=== PATIENT | female | born 1965 | race Hispanic/Latino ===

== ENCOUNTER 2020-08-25 14:39 | Emergency (ER) | payer SELFPAY ==
--- NOTE | ~2020-08-25 | US_ITS ---
EXAMINATION: US right upper quadrant DATE: 08/25/2020 16:09 INDICATION: Epigastric and right upper quadrant abdominal pain. Nausea and vomiting. TECHNIQUE: Multiple grayscale and Doppler ultrasound images of the abdomen were obtained. COMPARISON: None FINDINGS: The visualized portions of the head and body of the pancreas are normal. The liver is vera l without focal lesion. There is normal flow in main portal vein. There are gallstones in the gallbla dder, which is distended. Gallbladder wall thickening is noted. There was no sonographic Patel sign. The common duct is normal and measures 6 mm. IMPRESSION: 1. Acute cholecystitis. Reviewed, dictated and finalized at location A. IMPRESSION: 1. Acute cholecystitis.
[2020-08-25 14:51] VITALS: BP 162/86; PULSE 63; RESP 16; TEMP 36.6; O2SAT 99
--- NOTE | 2020-08-25 15:07 | ED.GENADULT ---
HPI - General Adult General Chief complaint: Abdominal Pain <Parker Parmar PA-C - Last Filed: 08/25/20 17:11> Stated complaint: abd pain <Parker Parmar PA-C - Last Filed: 08/25/20 17:11> Time Seen by Provider: 08/25/20 14:46 <Parker Parmar PA-C - Last Filed: 08/25/20 17:11> Source: patient and family <Parker Parmar PA-C - Last Filed: 08/25/20 17:11> Mode of arrival: ambulatory <Parker Parmar PA-C - Last Filed: 08/25/20 17:11> Limitations: no limitations and language barrier (Lumber Material Handler was utilized) <Parker Parmar PA-C - Last Filed: 08/25/20 17:11> History of Present Illness HPI narrative: Patient is a 55-year-old female who presents to emergency department for evaluation of abdominal pain that began after breakfast this morning around 10:00 as a severe aching pain in the epigastrium and right side of the back patient notes history of gallbladder disease in the past. Patient notes that she gets gallbladder attacks but today the pain became much worse and intensified causing an episode of emesis. Patient denies other pertinent past medical history has not taken anything for her symptoms presents in no distress but appears uncomfortable <Parker Parmar PA-C - Last Filed: 08/25/20 17:11> Related Data Allergies/adverse reactions: Allergies Allergy/AdvReac Type Severity Reaction Status Date / Time No Known Allergies Allergy Verified 08/25/20 14:59 <Parker Parmar PA-C - Last Filed: 08/25/20 17:11> Review of Systems Review of Systems: All systems reviewed & are unremarkable except as noted in HPI and below <Parker Parmar PA-C - Last Filed: 08/25/20 17:11> [facility] Surgical History Surgical History: Surgical History (Updated 08/25/20 @ 15:09 by Parker Parmar PA-C) Previous section <Parker Parmar PA-C - Last Filed: 08/25/20 17:11> Social History Social History: Social History (Updated 08/25/20 @ 15:09 by Parker Parmar PA-C) Smoking status: Never smoker Alcohol intake: never <Parker Parmar PA-C - Last Filed: 08/25/20 17:11> Exam Narrative: Exam Narrative: GENERAL: Well-appearing, obese, uncomfortable and in no acute distress. HEAD: Normocephalic, atraumatic. EYES: PERRLA and EOMI. ENT: Nares clear, no rhinorrhea or epistaxis. Mucous membranes moist. CHEST: Clear to auscultation. No respiratory distress. No wheezes rales or rhonchi HEART: Regular rate and rhythm. No murmur heard. Normal peripheral pulses. ABDOMEN: Soft, generalized tenderness worse in the upper quadrants with voluntary guarding, distended EXTREMITIES: Normal range of motion. No edema. SKIN: Warm, dry, no rash. NEURO: No focal deficits. Alert and oriented x3. PSYCH: Normal mood and affect. <SNEHA Marroquin Last Filed: 08/25/20 17:11> Course Course Emergency Course: Patient presented with symptoms consistent with gallbladder disease noting history of gallbladder disease was evaluated with imaging and blood work was medicated in the emergency department patient is aware of these findings her pain resolved with the medications provided. Patient aware of the recommendations and discussion with general surgeon. An manager line was utilized to communicate with the patient. She is afebrile nontoxic-appearing no distress ABCs and vital signs intact and stable. Patient agrees with the treatment plan <SNEHA Marroquin Last Filed: 08/25/20 17:11> Consultations Consultation #1: Discussed case with Dr. Delarosa the general surgeon who would like the patient to be sent home with low-fat diet and clinic follow-up <Parker Parmar PA-C - Last Filed: 08/25/20 17:11> Date: 08/25/20 <NSEHA Marroquin Last Filed: 08/25/20 17:11> Time: 17:09 <SNEHA Marroquin Last Filed: 08/25/20 17:11> Vital Signs Vital signs: Vital Signs Temperature 97.8 F 08/25/20 14:51 Pulse Rate 63 07/31
[2020-08-25] MEDS: SODIUM CHLORIDE 0.9% IV 1,000 ML 999 ML IV CONT (15:12)
[2020-08-25] MEDS: MORPHINE SULFATE (*CRX) 4 MG/ML INJ IV PUSH (15:15)
[2020-08-25] MEDS: FAMOTIDINE 20 MG/2 ML VIAL IV PUSH (15:15)
[2020-08-25] MEDS: ONDANSETRON INJ 4 MG/2 ML VIAL IV PUSH (15:15)
[2020-08-25 15:19] LABS: Basophils Absolute Auto 0.1 K/mm3 (0.0-0.1); Basophils Percent Auto 0.6 % (0.2-1.2); Eosinophils Absolute Auto 0.3 K/mm3 (0-0.3); Eosinophils Percent Auto 3.7 % (0-4.4); Hematocrit 41.3 % (37.0-47.0); Hemoglobin 13.4 g/dL (12.0-15.0); Immature Granulocyte Absolute 0.02 K/mm3 (0.00-0.031); Immature Granulocyte Percent A 0.3 % (0-0.5); Lymphocytes Absolute Auto 2.25 K/mm3 (0.9-3.2); Lymphocytes Percent Auto 28.6 % (18.3-44.2); Mean Corpuscular HGB Conc 32.4 g/dl (32-36); Mean Corpuscular Hemoglobin 29.8 pg (26-34); Mean Corpuscular Volume 91.8 fl (80-100); Mean Platelet Volume 9.6 fl (7.4-10.4); Monocytes Absolute Auto 0.6 K/mm3 (0.1-0.6); Monocytes Percent Auto 7.6 % (2.6-8.5); Neutrophils Absolute Auto 4.7 K/mm3 (1.3-6.7); Neutrophils Percent Auto 59.2 % (45.5-73.1); Platelet Count Result 227 k/mm3 (150-375); Red Cell Distribution Width 12.9 % (11.5-14.5); White Blood Count 7.9 K/mm3 (4.5-10.0)
[2020-08-25] MEDS: HYOSCYAMINE SULFATE 0.125 MG TABLET PO (15:23)
[2020-08-25 15:31] LABS: Alanine Aminotransferase 17 U/L (4-35); Albumin Level 3.9 g/dL (3.5-5.1); Alkaline Phosphatase 103 U/L (38-126); Anion Gap 10 mmol/L (8-16); Aspartate Amino Transferase 25 U/L (14-36); Bilirubin,Total 0.2 mg/dL (0.2-1.3); Blood Urea Nitrogen 15 mg/dL (7-17); Calcium 8.3 mg/dL (8.4-10.2); Carbon Dioxide 26 mmol/L (22-30); Chloride 106 mmol/L (98-107); Estimated CRCL calculation 87 ml/min; Estimated Glomerular Filt Rate > 60; Glucose 114 mg/dL (65-105); Lipase 126 U/L (23-300); Potassium 3.5 mmol/L (3.4-5.0); Sodium 142 mmol/L (137-145)
[2020-08-25 16:41] LABS: Add Urine Microscopic? YES; Appearance Urine Cloudy (Clear); Bacteria Urine Trace /hpf; Bilirubin Urine Negative (Negative); Blood Urine Negative (Negative); Color Urine Yellow (Yellow); Glucose Urine UA Negative (Negative); Ketones Urine Negative (Negative); Leukocyte Esterase Ur Trace LEU/UL (Negative); Mucus Urine Few /lpf; Nitrate Urine Negative (Negative); Protein Urine 1+ mg/dL (Negative); Specific Grav Ur 1.025 (1.001-1.035); Squamous Epithelial Cell Urine Many /hpf (Few)
[2020-08-25 16:42] VITALS: PULSE 59
[2020-08-25 16:45] VITALS: PULSE 58; RESP 14; O2SAT 98
[2020-08-25 17:09] VITALS: PULSE 59; RESP 18; O2SAT 97
[2020-08-25 17:28] VITALS: BP 136/78; PULSE 57; RESP 11; O2SAT 97
[2020-08-25 17:30] VITALS: BP 136/78; PULSE 65; RESP 16; O2SAT 100
== END 2020-08-25 17:30 | disposition home or self-care (01) ==
PROVIDERS: Emergency Medicine Emergency Medical Services; Emergency Provider General Practice
DX: K81.0 Acute cholecystitis (principal)
CPT/HCPCS: 36415; 76705; 80053; 81001; 81025; 83690; 85025; 96365; 96375; 99284; A9270; J0131; J2270; J2405; J7030

== ENCOUNTER → 2020-09-10 00:43 | Outpatient (CLI) | payer MEDICAID, SELFPAY ==
[2020-09-10 17:38] LABS: SARS-CoV-2 RNA PCR Negative
== END ==
PROVIDERS: Visit Provider Surgery
DX: Z01.812 Encounter for preprocedural laboratory examination (principal); Z20.822 Contact with and (suspected) exposure to COVID-19
CPT/HCPCS: C9803; U0003; U0005

== ENCOUNTER 2020-09-10 13:47 | Outpatient (CLI) | payer MEDICAID, SELFPAY ==
--- NOTE | 2020-09-10 15:25 | ECG_ITS ---
Measurements Intervals Hensel Rate: 62 P: 42 DC: 136 QRS: 21 QRSD: 102 T: 46 QT: 438 QTc: 446 Interpretive Statements SINUS RHYTHM INCOMPLETE RIGHT BUNDLE BRANCH BLOCK BASELINE ARTIFACT- I, II, III, AVR, AVL, AVF BORDERLINE ECG Electronically Signed On 09-10-2020 16:31:26 CDT by Hugo Chen D.O.
[2020-09-10 15:55] LABS: Alanine Aminotransferase 25 U/L (4-35); Albumin Level 3.9 g/dL (3.5-5.1); Alkaline Phosphatase 105 U/L (38-126); Amylase 68 U/L (30-110); Aspartate Amino Transferase 27 U/L (14-36); Bilirubin,Total 0.4 mg/dL (0.2-1.3); Lipase 104 U/L (23-300)
== END 2020-09-10 13:48 | disposition home or self-care (01) ==
PROVIDERS: Visit Provider Surgery
DX: Z01.818 Encounter for other preprocedural examination (principal); K80.00 Calculus of gallbladder with acute cholecystitis without obstruction
CPT/HCPCS: 36415; 80076; 82150; 83690; 86850; 86870; 86880; 86900; 86901; 86902; 86971; 93005

== ENCOUNTER 2020-09-11 02:04 | Day surgery (SDC) | payer MEDICAID, SELFPAY ==
[2020-09-09 16:10] VITALS: BMI 46.6
[2020-09-11] VITALS (12 sets, daily range): BP systolic 125–160; BP diastolic 66–95; PULSE 58–70; RESP 14–20; TEMP 36.2; O2SAT 91–96
--- NOTE | 2020-09-11 06:54 | WPDHPUPDATE1 ---
History and Physical Update Update Date/Time: 09/11/20 06:54 History and Physical has been reviewed, including an updated exam of the patient. There are NO changes in the patient's condition. Risks, benefits, and alternatives have been discussed and questions answered. Patient agrees to proceed with procedure.
[2020-09-11] MEDS: ACETAMINOPHEN 500 MG TABLET 1000 MG PO (13:00)
[2020-09-11] MEDS: LACTATED RINGERS 1,000 ML 30 ML IV CONT ×2 (13:14→15:25)
[2020-09-11] MEDS: KETOROLAC 15 MG/ML VIAL (*BKC) IV PUSH (13:14)
--- NOTE | 2020-09-11 13:26 | P.PNAN_ITS ---
Anes - Initial Pre Proc Eval Procedure: Operation Date: 09/11/20 14:00 Proposed Procedures p Laparoscopic Cholecystectomy - Brando Delarosa MD Date/Time: 09/11/20 13:26 Surgeon: Brando Delarosa MD Pre Op Diagnosis: acute cholecystitis with stones Patient Data Age: 55 Gender: F Height: 1.52 m Weight: 107.7 kg Last Vital Signs Temp 36.2 C L 09/11/20 13:09 Pulse 63 09/11/20 13:09 BP 160/95 H 09/11/20 13:09 Pulse Ox 96 09/11/20 13:09 Allergies Allergy/AdvReac Type Severity Reaction Status Date / Time No Known Allergies Allergy Verified 09/11/20 13:09 Home Medications Medication Instructions Recorded Confirmed Type No Home Medications 09/09/20 09/09/20 History Patient hx anesthesia problems: none Family hx anesthesia problems: none [facility] Surgical History Surgical History Previous section Family History Family History Father Acute myocardial infarction Daughter Asthma Social History Social History Smoking status: Never smoker Alcohol intake: never Living arrangements: with family Spiritual care concerns: No Anes - Eval Final PreProcedure Day of Procedure 09/11/20 13:26 Patient weight: morbidly obese Heart: regular rate and rhythm Lungs: clear to auscultation and normal air movement Airway: Mallampati scale class II Neurological: alert and oriented Last oral intake: >/= 8 hours ASA classification: III Emergent: no Anesthetic plan: proceed Anesthesia type and monitoring: general ETT and standard monitoring Informed Consent: The patient's anesthetic plan and its attendant risks and benefits were discussed with the patient/family/POA. Questions were solicited and answers provided to the satisfaction of the patient/family/POA.
[2020-09-11] MEDS: ceFAZolin 2 GM/D5W 50 ML 2 GM/50 ML BAG IVPB (13:53)
[2020-09-11] MEDS: BUPIVACAINE/EPINEPHRINE 0.5% 30 ML VIAL INFILTRATE (14:02)
--- NOTE | 2020-09-11 16:04 | SUR.PHASEI ---
Simple mask removed at 1604.
[2020-09-11] MEDS: ONDANSETRON INJ 4 MG/2 ML VIAL IV PUSH (16:15)
[2020-09-11] MEDS: fentaNYL CITRATE INJ (*CRX) 100 MCG/2 ML VIAL 25 MCG IV PUSH (16:24)
--- NOTE | 2020-09-11 16:38 | W.PM.PROC2 ---
Procedure Note - Detailed Date of Procedure 09/11/20 Pre-op Diagnosis acute cholecystitis with stones Post-op Diagnosis other ( Acute and chronic cholecystitis, cholelithiasis) Procedure Performed laparoscopic cholecystectomy Surgeon Brando Delarosa MD Hha Poppy Tucker [facility] Anesthesia general and local ( 0.5% Marcaine with epinephrine) Indications patient is a 55-year-old woman with severe right upper quadrant postprandial abdominal pain. She was in the emergency room and imaging showed multiple gallstones and evidence of cholecystitis. She has continued to have right upper quadrant pain with nausea. She was seen in the office in is taken to surgery now for laparoscopic cholecystectomy. Findings Multiple gallstones were noted in the gallbladder. She had fatty liver. The gallbladder had evidence of acute but mostly, chronic cholecystitis. There was no biliary ductal dilatation. No other significant findings. Description of Procedure The patient was taken to surgery and induced into general anesthesia. The abdomen was prepped and draped. Trocars were placed in the usual fashion using 0.5% Marcaine with epinephrine and applied Medical optical trocars. A 5 mm camera was used. The gallbladder was decompressed with a laparoscopic aspirator. It was noted that there were multiple stones in the gallbladder. The gallbladder wall was thickened and there was some edema in the wall of gallbladder consistent with chronic and acute cholecystitis. The cholecystotomy was closed with a Vicryl endoloop. The gallbladder was then retracted anterosuperiorly. Adhesions to the gallbladder were taken down using cautery and some dissection. Eventually we placed traction on the infundibulum of the gallbladder and began dissection in the cholecystohepatic triangle. The cystic duct and cystic artery were dissected out very clearly. The dissection was pretty bloody as there was quite a bit of hypervascularity from the inflammation. Cautery was used for hemostasis. Eventually the cystic duct and cystic artery were dissected and the gallbladder was dissected off the liver at its lower 3rd. Critical view was achieved. We securely clipped and divided the cystic duct cystic artery. We then continued our dissection of the gallbladder. It was carefully dissected off the liver. There was evidence of edema and chronic inflammation in the wall of the gallbladder. Eventually the gallbladder was dissected completely free of the liver. Some additional cautery on the gallbladder fossa was required. We then placed an Endo-Catch device and placed the gallbladder within bag. The gallbladder was extricated through the epigastric trocar site. I had to enlarge the skin at the epigastric trocar site. I also had to dilate the fascial opening. Eventually the gallbladder was able to be extricated. We replaced the epigastric trocar and occluded the opening with towel clips so that re- insufflation could be provided. With re- insufflation, I explosive the gallbladder fossa. There was really no bleeding. I irrigated it with saline and suctioned the area repeatedly. No evidence of bile leak or bleeding was noted. We suctioned away the rest of the irrigant. We then evacuated CO2 and removed the trocar sleeves. The fascia at the epigastric trocar site was closed with a [id number] 0 Vicryl suture. The subcutaneous was closed with 3 0 Vicryl interrupted sutures. The skin was loosely approximated with interrupted 3 0 Vicryl subcuticular skin sutures. The other trocar sites were closed at the skin level with running 4 0 Monocryl skin suture. All the incisions were then dressed with Exofin surgical adhesive. We awakened the patient and transferred her to recovery. Sponge and needle counts were correct x2. No complications were noted. Estimated Blood Loss 40 Drains No Packing No Pathology yes ( Gallbladder) Complications None Condition stable Disposition PAC
--- NOTE | 2020-09-11 16:48 | SUR.PHASEI ---
RN used [employer]. Patient said she was ready to go next door and get up in a chair, get something to drink, and visit with Maykel.
[2020-09-11] MEDS: SCOPOLAMINE 1.5 MG PATCH TRANSDERM (17:41)
== END 2020-09-11 18:34 | disposition home or self-care (01) ==
PROVIDERS: Visit Provider Surgery
PROC: 0FT44ZZ Resection of Gallbladder, Percutaneous Endoscopic Approach (ICD-10-PCS; CPT 47562; principal; 2020-09-11 14:00)
DX: K80.10 Calculus of gallbladder with chronic cholecystitis without obstruction (principal); E66.01 Morbid (severe) obesity due to excess calories; Z68.42 Body mass index [BMI] 45.0-49.9, adult
CPT/HCPCS: 47562; 88304; A9270; C1713; J0690; J1100; J1170; J1885; J2250; J2405; J2704; J2710; J3010; J7120

== ENCOUNTER 2020-10-05 00:30 | Emergency (ER) | payer MEDICAID, SELFPAY ==
--- NOTE | ~2020-10-05 | CT_ITS ---
EXAMINATION: CT abdomen pelvis w con DATE: 10/05/2020 03:02 INDICATION: Abdominal pain TECHNIQUE: Computed tomography (CT) of the abdomen and pelvis was performed with 100 cc Omnipaque 350 intravenous contrast. The dose-length product was 1422.34 mGy-cm. Automated exposure control and ite rative reconstruction technique were employed. COMPARISON: No prior studies for comparison. FINDINGS: Heart size normal. No significant pleural or pericardial effusion. Fatty infiltration of th e liver. Status post cholecystectomy. There is grade 1 anterolisthesis at L4-5. There are small subce ntimeter hypodensities of the left kidney, likely cysts. The spleen, pancreas, adrenal glands and rig ht kidney are unremarkable. Nonobstructive bowel gas pattern. No free air or free fluid. No abnormal pelvic masses or fluid collections. No significant vascular abnormality. No lymphadenopathy. IMPRESSION: 1. No acute abdominal abnormality. Reviewed, dictated and finalized at location A.
[2020-10-05 00:43] VITALS: BP 169/87; PULSE 74; RESP 20; TEMP 36.5; O2SAT 95
--- NOTE | 2020-10-05 01:18 | ED.GENADULT ---
HPI - General Adult General Chief complaint: Unspecified Stated complaint: ABD PAIN Time Seen by Provider: 10/05/20 01:18 History of Present Illness HPI narrative: 55 yo female w/ h/o cholecystectomy presents to the ED for flank pain. Right flank pain since this afternoon. Radiates to the epigastrium. Started when she felt a pop while helping to move. Associated with nausea. She had a cholecystectomy 3 weeks ago. No symptoms, fever, CP, SOB. Related Data Allergies Allergy/AdvReac Type Severity Reaction Status Date / Time No Known Allergies Allergy Verified 09/23/20 10:38 Review of Systems Review of Systems: All systems reviewed & are unremarkable except as noted in HPI and below Constitutional: Constitutional: Denies fever(s) Cardiovascular: Cardiovascular: Denies chest pain Respiratory: Respiratory: Denies dyspnea Gastrointestinal: Gastrointestinal: Reports as per HPI Genitourinary: Genitourinary: Reports no additional female genitourinary complaints Musculoskeletal: Musculoskeletal: Reports back pain Neurologic: Reports system reviewed and no additional complaints, except as documented [facility] Surgical History Surgical History Hx laparoscopic cholecystectomy Previous section Family History Family History Father Acute myocardial infarction Daughter Asthma Social History Social History Alcohol intake: never Spiritual care concerns: No Exam Const: General: healthy appearing, no acute distress and alert Orientation/consciousness: patient oriented x3 HENMT: Head: normal to inspection Neck: Neck: normal visual inspection Resp: Effort & Inspection: normal respiratory effort Auscultation: clear to auscultation bilaterally, no rales, no rhonchi and no wheezes Cardio: Jugular venous distension: no JVD Rate: regular rate Rhythm: regular rhythm Heart sounds: no murmurs GI: Inspection: non-distended GI Palp: Yes Soft to palpation, Yes Tenderness to palpation present (GI) (epigastri/RUQ) and No Guarding due to palpation present (GI) Back/Spine/Pelvis: Back: no CVA tenderness Skin: General skin exam: normal color Neuro: General: patient oriented x3, gait normal, moves all extremities and no focal motor deficits Cognition (Neuro): normal cognition Speech: normal speech Extrem: General: no edema Psych: Appearance: well kempt Affect: normal affect Course Vital Signs Vital signs: Vital Signs Temperature 36.5 C 10/05/20 00:43 Pulse Rate 74 10/05/20 00:43 Respiratory Rate 20 10/05/20 00:43 Blood Pressure 169/87 H 10/05/20 00:43 Pulse Oximetry 95 10/05/20 00:43 Temperature 36.5 C 10/05/20 00:43 Pulse Rate 78 10/05/20 05:49 Respiratory Rate 20 10/05/20 05:49 Blood Pressure 142/73 H 10/05/20 05:49 Pulse Oximetry 100 10/05/20 05:49 Medical Decision Making Differential Diagnosis Differential Diagnosis: Hernia, Kidney stone, muscle strain, post operative pain, other Medical Records Medical records reviewed: Yes I reviewed the external patient's medical records. Vital Signs Vital Signs: Vital Signs Temperature 36.5 C 10/05/20 00:43 Pulse Rate 74 10/05/20 00:43 Respiratory Rate 20 10/05/20 00:43 Blood Pressure 169/87 H 10/05/20 00:43 Pulse Oximetry 95 10/05/20 00:43 Temperature 36.5 C 10/05/20 00:43 Pulse Rate 78 10/05/20 05:49 Respiratory Rate 20 10/05/20 05:49 Blood Pressure 142/73 H 10/05/20 05:49 Pulse Oximetry 100 10/05/20 05:49 Lab Data Lab results reviewed: Yes I reviewed the patient's lab results. Result diagrams: 10/05/20 01:52 10/05/20 01:52 Labs: Lab Results 10/05/20 10/05/20 10/05/20 Range/Units 01:52 01:52 01:52 WBC 7.4 (4.5-10.0) K/mm3 RBC 4.45 (4.2-5.4) M/mm3
[2020-10-05] MEDS: MORPHINE SULFATE (*CRX) 4 MG/ML INJ IV PUSH (01:44)
[2020-10-05 02:01] LABS: Basophils Absolute Auto 0.1 K/mm3 (0.0-0.1); Basophils Percent Auto 0.7 % (0.2-1.2); Eosinophils Absolute Auto 0.3 K/mm3 (0-0.3); Eosinophils Percent Auto 4.4 % (0-4.4); Hematocrit 39.7 % (37.0-47.0); Hemoglobin 13.3 g/dL (12.0-15.0); Immature Granulocyte Absolute 0.02 K/mm3 (0.00-0.031); Immature Granulocyte Percent A 0.3 % (0-0.5); Lymphocytes Absolute Auto 2.73 K/mm3 (0.9-3.2); Lymphocytes Percent Auto 36.7 % (18.3-44.2); Mean Corpuscular HGB Conc 33.5 g/dl (32-36); Mean Corpuscular Hemoglobin 29.9 pg (26-34); Mean Corpuscular Volume 89.2 fl (80-100); Mean Platelet Volume 9.2 fl (7.4-10.4); Monocytes Absolute Auto 0.7 K/mm3 (0.1-0.6); Monocytes Percent Auto 8.9 % (2.6-8.5); Neutrophils Absolute Auto 3.7 K/mm3 (1.3-6.7); Platelet Count Result 225 k/mm3 (150-375); Red Blood Count 4.45 M/mm3 (4.2-5.4); Red Cell Distribution Width 13.5 % (11.5-14.5); White Blood Count 7.4 K/mm3 (4.5-10.0)
[2020-10-05 02:08] LABS: Add Urine Microscopic? YES; Appearance Urine Clear (Clear); Bacteria Urine Trace /hpf; Bilirubin Urine Negative (Negative); Blood Urine 1+ (Negative); Color Urine Straw (Yellow); Glucose Urine UA Negative (Negative); Ketones Urine Negative (Negative); Leukocyte Esterase Ur Negative LEU/UL (Negative); Nitrate Urine Negative (Negative); Protein Urine Negative (Negative); RBC Urine 0-2 /hpf (0-2); Squamous Epithelial Cell Urine Few /hpf (Few); Urobilinogen Urine Negative mg/dL (<2.0); WBC Urine 0-3 /hpf
[2020-10-05 02:13] LABS: Prothrombin Time 12.7 Seconds (11.1-14.7)
[2020-10-05 02:14] LABS: Alanine Aminotransferase 35 U/L (4-35); Albumin Level 3.9 g/dL (3.5-5.1); Alkaline Phosphatase 97 U/L (38-126); Anion Gap 6 mmol/L (8-16); Aspartate Amino Transferase 45 U/L (14-36); Bilirubin,Total 1.1 mg/dL (0.2-1.3); Blood Urea Nitrogen 8 mg/dL (7-17); Calcium 8.7 mg/dL (8.4-10.2); Carbon Dioxide 28 mmol/L (22-30); Chloride 104 mmol/L (98-107); Estimated CRCL calculation 162 ml/min; Estimated Glomerular Filt Rate > 60; Glucose 110 mg/dL (65-110); Lactic Acid Reflex 0.7 mmol/L (0.7-2.1); Lipase 118 U/L (23-300); Partial Thromboplastin Time 30.4 SECONDS (22.3-36.8); Potassium 3.6 mmol/L (3.4-5.0); Sodium 138 mmol/L (137-145)
[2020-10-05 03:55] VITALS: BP 140/79; PULSE 65; RESP 20; O2SAT 95
[2020-10-05 05:49] VITALS: BP 142/73; PULSE 78; RESP 20; O2SAT 100
== END 2020-10-05 05:55 | disposition home or self-care (01) ==
PROVIDERS: Emergency Provider Emergency Medicine
DX: R10.13 Epigastric pain (principal)
CPT/HCPCS: 36415; 74177; 80053; 81001; 83605; 83690; 85025; 85610; 85730; 96374; 99284; J2270; Q9967

== ENCOUNTER 2020-10-09 12:09 | Outpatient (CLI) | payer MEDICAID, SELFPAY ==
--- NOTE | ~2020-10-09 | NM_ITS ---
EXAMINATION: NM hepatobiliary wo pharm DATE: 10/09/2020 15:05 INDICATION: Right upper quadrant abdominal pain status post cholecystectomy. COMPARISON: CT abdomen and pelvis 10/05/2020 TECHNIQUE: 4.5 mCi Tc-99m mebrofenin (Choletec) was administered intravenously. Scintigraphic images of the abdomen were obtained for one hour. FINDINGS: There is normal clearance of radiotracer from the blood pool. There is homogeneous tracer u ptake by the liver. Activity progresses to the bowel. IMPRESSION: 1. No bile leak. Reviewed, dictated and finalized at location A. IMPRESSION: 1. No bile leak.
== END 2020-10-09 12:10 | disposition home or self-care (01) ==
PROVIDERS: PCP Surgery; Visit Provider Surgery
DX: K80.20 Calculus of gallbladder without cholecystitis without obstruction (principal); R10.11 Right upper quadrant pain
CPT/HCPCS: 78226; A9537

== ENCOUNTER 2023-11-03 00:01 | Emergency (ER) | payer MEDICAID, SELFPAY ==
[2023-11-03 00:05] VITALS: BP 169/84; PULSE 59; RESP 20; TEMP 36.4; O2SAT 99
[2023-11-03 01:06] VITALS: BP 159/90; PULSE 59; RESP 17; O2SAT 98
[2023-11-03 01:14] LABS: BEDSIDEPREGUCG Negative
[2023-11-03 01:18] LABS: Add Urine Microscopic? NO; Appearance Urine Clear (Clear); Basophils Absolute Auto 0.1 K/mm3 (0.0-0.1); Basophils Percent Auto 0.8 % (0.2-1.2); Bilirubin Urine Negative (Negative); Blood Urine Negative (Negative); Color Urine Yellow (Yellow); Eosinophils Absolute Auto 0.3 K/mm3 (0-0.3); Eosinophils Percent Auto 3.1 % (0-4.4); Glucose Urine UA Negative (Negative); Hematocrit 43.5 % (37.0-47.0); Hemoglobin 14.2 g/dL (12.0-15.0); Immature Granulocyte Absolute 0.02 K/mm3 (0.00-0.031); Immature Granulocyte Percent A 0.2 % (0-0.5); Ketones Urine Negative (Negative); Leukocyte Esterase Ur Negative LEU/UL (Negative); Lymphocytes Absolute Auto 2.99 K/mm3 (0.9-3.2); Lymphocytes Percent Auto 34.4 % (18.3-44.2); Mean Corpuscular HGB Conc 32.6 g/dl (32-36); Mean Corpuscular Hemoglobin 30.5 pg (26-34); Mean Corpuscular Volume 93.3 fl (80-100); Mean Platelet Volume 9.8 fl (7.4-10.4); Monocytes Absolute Auto 0.6 K/mm3 (0.1-0.6); Monocytes Percent Auto 7.1 % (2.6-8.5); Neutrophils Absolute Auto 4.7 K/mm3 (1.3-6.7); Neutrophils Percent Auto 54.4 % (45.5-73.1); Nitrate Urine Negative (Negative); Platelet Count Result 236 k/mm3 (150-375); Protein Urine Negative (Negative); Red Blood Count 4.66 M/mm3 (4.2-5.4); Red Cell Distribution Width 13.1 % (11.5-14.5); Specific Grav Ur 1.023 (1.001-1.035); White Blood Count 8.7 K/mm3 (4.5-10.0); pH Urine 6.5 (5.0-9.0)
[2023-11-03 01:28] LABS: Alanine Aminotransferase 17 U/L (6-35); Albumin Level 4.2 g/dL (3.5-5.1); Alkaline Phosphatase 101 U/L (38-126); Anion Gap 9 mmol/L (4-12); Aspartate Amino Transferase 25 U/L (14-36); Bilirubin,Total 0.2 mg/dL (0.2-1.3); Blood Urea Nitrogen 20 mg/dL (7-17); Calcium 8.7 mg/dL (8.4-10.2); Carbon Dioxide 30 mmol/L (22-30); Chloride 100 mmol/L (98-107); Estimated CRCL calculation 104 ml/min; Estimated Glomerular Filt Rate > 60; Glucose 90 mg/dL (65-110); Lipase 170 U/L (23-300); Potassium 3.5 mmol/L (3.4-5.0); Sodium 139 mmol/L (137-145)
[2023-11-03 01:46] VITALS: BP 138/80; PULSE 63; RESP 14; O2SAT 97
[2023-11-03 02:01] VITALS: BP 144/80; PULSE 58; RESP 14; O2SAT 100
[2023-11-03 02:16] VITALS: BP 133/80; PULSE 56; RESP 14; O2SAT 100
[2023-11-03 03:23] VITALS: BP 108/93; PULSE 60; RESP 19; O2SAT 96
--- NOTE | 2023-11-03 03:34 | ED.GENADULT ---
HPI - General Adult General Chief complaint: Abdominal Pain Stated complaint: abd pain Time Seen by Provider: 11/03/23 01:52 History of Present Illness HPI narrative: Swedish speaking. Uniform Maker service used for all communication Ranulfo # [id number] This is a 58-year-old female presenting with 2 days of epigastric pain. Pain is located in the epigastric area and radiates the rest of her abdomen. It is sharp. Severe in intensity. It is worse after eating. She has never had pain like this before there are no exacerbating alleviating factors. No nausea vomiting or diarrhea. No fevers. Related Data Allergies Allergy/AdvReac Type Severity Reaction Status Date / Time No Known Allergies Allergy Verified 11/03/23 01:14 [facility] Surgical History Surgical History Hx laparoscopic cholecystectomy Previous section Family History Family History Father Acute myocardial infarction Daughter Asthma Social History Social History Smoking status: Never smoker Alcohol intake: never Living arrangements: with family Spiritual care concerns: No Exam Narrative: APPEARANCE: No apparent distress. Head: atraumatic. EYES: EOMI, NOSE: Atraumatic NECK: Trachea midline RESPIRATORY: No increased rate of breathing CARDIOVASCULAR: RRR, ABDOMINAL: Tenderness to palpation in the epigastric area, no guarding rebound no CVA tenderness MUSCULOSKELETAl: No obvious deformities NEURO: Alert. Moving 4/4 extremities SKIN:: Warm, dry. Normal color PSYCHIATRIC: Normal affect Course Vital Signs Vital signs: Vital Signs Temperature 97.6 F 11/03/23 00:05 Pulse Rate 59 L 11/03/23 00:05 Respiratory Rate 20 11/03/23 00:05 Blood Pressure 169/84 H 11/03/23 00:05 Pulse Oximetry 99 11/03/23 00:05 Oxygen Delivery Room Air 11/03/23 00:05 Temperature 97.6 F 11/03/23 00:05 Pulse Rate 60 11/03/23 03:23 Respiratory Rate 19 11/03/23 03:23 Blood Pressure 108/93 H 11/03/23 03:23 Pulse Oximetry 96 11/03/23 03:23 Oxygen Delivery Room Air 11/03/23 00:05 Medical Decision Making MDM Narrative Medical decision making narrative: -Course: 58-year-old female presenting with epigastric pain. History and physical are consistent with gastritis gastritis/peptic ulcer disease. Laboratory studies within normal limits. Patient will be treated with Carafate Pepcid and Tylenol. She will be instructed to follow-up with her primary care physician. Given return precautions for fevers and severe abdominal pain. -DDX includes but is not limited to: Gastritis, peptic ulcer disease, GERD pancreatitis -Independent interpretation of studies: Labs reviewed within normal limits -Dx tests considered but not ordered: CT abdomen pelvis-epigastric tenderness and textbook story for gastritis. Stable vital signs otherwise well-appearing. -Interventions: Maalox, Pepcid, Dilaudid -Shared decision making / Disposition: Discharge -RX Pepcid, Carafate, Tylenol Vital Signs Vital Signs: Vital Signs Temperature 97.6 F 11/03/23 00:05 Pulse Rate 59 L 11/03/23 00:05 Respiratory Rate 20 11/03/23 00:05 Blood Pressure 169/84 H 11/03/23 00:05 Pulse Oximetry 99 11/03/23 00:05 Oxygen Delivery Room Air 11/03/23 00:05 Temperature 97.6 F 11/03/23 00:05 Pulse Rate 60 11/03/23 03:23 Respiratory Rate 19 11/03/23 03:23 Blood Pressure 108/93 H 11/03/23 03:23 Pulse Oximetry 96 11/03/23 03:23 Oxygen Delivery Room Air 11/03/23 00:05 Lab Data 11/03/23 01:11 11/03/23 01:11 Labs: Lab Results 11/03/23 11/03/23 Range/Units 01:11 01:13 WBC 8.7 (4.5-10.0) K/mm3 RBC 4.66 (4.2-5.4) M/mm3 Hgb 14.2 (12.0-15.0) g/dL Hct 43.5 (37.0-47.0) % MCV 93.3 (80-100) fl MCH 30.5
[2023-11-03] MEDS: MAG HYDROX/AL HYDROX/SIMETH 30 ML UDC PO (03:41)
[2023-11-03] MEDS: FAMOTIDINE 20 MG/2 ML VIAL IV PUSH (03:42)
[2023-11-03] MEDS: HYDROmorphone HCL INJ (*CRX) 1 MG/ML SYR 0.5 MG IV PUSH (03:42)
== END 2023-11-03 03:50 | disposition home or self-care (01) ==
PROVIDERS: Emergency Provider Emergency Medicine
DX: K29.70 Gastritis, unspecified, without bleeding (principal)
CPT/HCPCS: 36415; 80053; 81003; 81025; 83690; 85025; 96374; 96375; 99284; A9270; J1170

== ENCOUNTER 2024-03-31 15:58 | Emergency (ER) | payer MEDICAID, SELFPAY ==
--- OUTSIDE RECORDS SUMMARY | 2024-03-31 16:01 | XMS_ITS | Referral Summary ---
Author Organization [facility] Address [address] [place] [address] Care Team Providers Care Bookkeepers Supervisor Name Role Phone Unavailable Primary Care Provider Unavailabl e Source Comments [facility],non-owned Affiliates and Associated Physician Practices is amultiple site organization consisting of ambulatory clinics and hospital sitesin [place], [place], [place] and [place]. This disclosure is being madepursuant to the Care Everywhere program and may not contain all information available regarding this patient. Last updated 17.[facility] Allergies No known active allergies Medications Be aware that medications may not be up to date on this document. Always verify current medications with the patient. No known medications Social History Tobacco Use Types Packs/Day Years Used Date Smoking Tobacco: Never Assessed Sex and Gender Information Value Date Recorded Sex Assigned at Not on file Gender Identity Not on file Sexual Orientation Not on file Last Filed Vital Signs Vital Sign Reading Time Taken Comments Blood Pressure 147/86 04/16/2022 12:20 PM TRADE EMBALMER Pulse 58 04/16/2022 12:20 PM TRADE EMBALMER Temperature - - Respiratory Rate - - Oxygen Saturation - - Inhaled Oxygen Concentration - - Weight 107.5 kg (237 lb) 04/16/2022 12:15 PM TRADE EMBALMER Height - - Body Mass Index - - Plan of Treatment Not on file
--- OUTSIDE RECORDS SUMMARY | 2024-03-31 16:01 | XMS_ITS | Patient Health Summary ---
Author Organization [facility] Address [address] [place] [address] Care Team Providers Care Log Roper Name Role Phone Unavailable Primary Care Provider Unavailabl e Note from [facility],non-owned Affiliates and Associated Physician Practices is amultiple site organization consisting of ambulatory clinics and hospital sitesin [place], [place], [place] and [place]. This disclosure is being madepursuant to the Care Everywhere program and may not contain all information available regarding this patient. Last updated 17.[facility] Allergies No known active allergies Medications Be [...] Comments Blood Pressure 147/86 04/16/2022 12:20 PM EGG BREAKING MACHINE OPERATOR Pulse 58 04/16/2022 12:20 PM EGG BREAKING MACHINE OPERATOR Temperature - - Respiratory Rate - - Oxygen Saturation - - Inhaled Oxygen Concentration - - Weight 107.5 kg (237 lb) 04/16/2022 12:15 PM EGG BREAKING MACHINE OPERATOR Height - - Body Mass Index - -
--- OUTSIDE RECORDS SUMMARY | 2024-03-31 16:01 | XMS_ITS | CONTINUITY OF CARE DOCUMENT ---
Author Name simone nichols Address Unknown Organization [facility] Office Address [address] [place] [address] [address] [place] [address] Phone [phone] Care Team Providers Care Drill Operator Name Role Phone Pipe HOLLOWAY, Ulises Unavailable [phone] Aaron HOLLOWAY, Jovi Aguilera Unavailable INSURANCE PROVIDERS Payer name Policy type / Coverage type [place] red democrat [employer] Medicaid 3 [id number]
--- OUTSIDE RECORDS SUMMARY | 2024-03-31 16:01 | XMS_ITS | Clinical Summary ---
Author Organization [facility] Address [address] [place] [address] Care Team Providers Care Print Line Inspector Name Role Phone Unavailable Primary Care Provider Unavailabl e Source Comments [facility],non-owned Affiliates and Associated Physician Practices is amultiple site organization consisting of ambulatory clinics and hospital sitesin [place], [place], [place] and [place]. This disclosure is being madepursuant to the Care Everywhere program and may not contain all information available regarding this patient. Last updated 17.[facility] Allergies No known active allergies Medications Be [...] Comments Blood Pressure 147/86 04/16/2022 12:20 PM [employer] Pulse 58 04/16/2022 12:20 PM [employer] Temperature - - Respiratory Rate - - Oxygen Saturation - - Inhaled Oxygen Concentration - - Weight 107.5 kg (237 lb) 04/16/2022 12:15 PM [employer] Height - - Body Mass Index - - Plan of Treatment Health Maintenance Due Date Last Done Comments COLOGUARD (AGES 45-75) - COL ON CA SCREENING 1966 COLON MONITORING 1966 COLONOSCOPY - COLON CA SCREENING 1966 CT COLONOGRAPHY - COLON CA SCREENING 1966 Colorectal Cancer Screening 1966 FIT - COLON CA SCREENING 1966 FLEX SIG - COLON CA SCREENING 1966 LIPID TESTING 1966 MAMMOGRAM 1966 PAP SMEAR 1966 HIV SCREENING 1981 HEPATITIS C SCREENING 07/11/1984 DTAP/TDAP/TD VACCINES (1 - Tdap) 1985 HEPATITIS B VACCINE (1 of 3 - 19+ 3-dose series) 1985 PNEUMOCOCCAL VACCINE 50+ (1 of 1 - PCV) 2016 ZOSTER VACCINE (1 of 2) 2016 COVID-19 VACCINE (3 - 2023-2 5 season) 2023 01/21/2021, 11/03/2020 INFLUENZA VACCINE (#1) 2023 DEPRESSION SCREENING 03/01/2024 HIB VACCINE Aged Out No longer eligi ble based on patient's age to complete this topic HPV VACCINE Aged Out No longer eligi ble based on patient's age to complete this topic MENINGOCOCCAL (Group B) VACCINE Aged Out No longer eligible b ased on patient's age to complete this topic MENINGOCOCCAL VACCINE Aged Out No january seamus eligible based on patient's age to complete this topic PNEUMOCOCCAL VACCINE Aged Out No long er eligible based on patient's age to complete this topic
--- OUTSIDE RECORDS SUMMARY | 2024-03-31 16:01 | XMS_ITS | Data Portability ---
Author Organization [facility] Selvin Henning Address [address] [place] [address] Care Team Providers Care Manager Of Quality Name Role Phone JOVI HOLT Primary Care Provider Elena vailable Assessment Encounter Date Assessment Date Assessment LastModified by Organization Details LastModified Time 06/19/2022 06/19/2022 56 yo female with a hx of morbid obesity who presents for follow up of BP and chronic right flank pain. [email or web address] Not available 06/19/2022 18:37:21 05/24/2023 05/24/2023 57 year old female with a history of fatty liver with findings c/w cirrhosis on CT who presents for right mid back pain. [email or web address] Not available 05/24/2023 17:27:23 Plan of Treatment Reminders Order Date Submit Date Provider Last Modified By Organization Details Last Modified Time Details Appointments None record ed. Lab TSH, ultra- sensit fernando, serum 2022 023 RIPLEY [facility], [address], [address], [place], [address], 3 06:15:42 hepati tis panel (A+B+C ), acute, serum 2022 023 AUGIE [facility], [address], [place], [address], 3 06:15:41 CMP, serum or plasma 2022 023 RIP[facility], [address], [place], [address], 3 19:08:45 smooth muscle Ab, titer, IFA, serum 2022 023 [facility], [address], [place], [address], 3 12:04:12 alpha- 1-anti trypsi n (aat), QN, serum 2022 023 [facility], [address], [place], [address], 3 12:04:11 CMP, serum or plasma 2023 024 [facility], [address], [place], [address], 4 13:10:50 Referral physic al therap ist referr hi 2022 023 [facility] Physical, Occupational [facility] Medicine [facility] Re[facility], [address] [place], [address], 3 12:52:41 vein specia list referr debi henning-zachary ruiz only. Failed conser vative measur es. 2022 023 young Betancur MD, [address] [facility], [address], [place], [address], 3 09:17:56 gastro entero logist referr al 2023 024 [facility], [address], [place], [address], 4 11:59:38 nutrit ionist /dieti miguelito referr al 2023 024 [facility] Healthcare Twisting Press Operator Nutrition Dietitian, [address] [place], [address], 4 11:59:38 Procedures colono scopy proced ure (PROC) - Is rené t on blood thinne rs?: NPacem xenia or defibr illato r?: NPrep (Colon oscopy Proced ure): PEG 3350, Go Lytely , Colyte or Gavaly te G, depend ing on insura nce covera geIf rené t has had robertson ry / vascul ar stent, provid e date: NoIf rené t has had heart attack or stroke , provid e date: Juan Luis merritt t ever had proble ms with anesth esia or sedati on?: Juan Luis patimarj t had proble ms with openin g mouth or breath ing tubes? : NoDoes rené t use a wheelc hair?: N 2022 023 [facility] (Surgery Sched), [address] [place], [address], 3 12:25:16 Surgeries None record ed. Imaging US, abdome n 2022 023 [facility] (Rad), [address], [place], [address], 4 05:01:15 US, elasto gram 2023 024 [facility] Centralized Scheduling, [address] [place], [address], 4 14:26:38 Medication Orders Tyleno l Extra Streng th 500 mg tablet 2022 023 [email or web address] [facility] #[id number], [address] , [place], [place], [id number], 3 10:29:22 famoti dine 20 mg tablet 2022 023 [facility] #86819, [address] , [place], [place], [id number], 3 10:29:16 losart an 25 mg tablet 2022 023 [email or web address] [facility] #23038, [address], [place], [place], [id number], 3 10:29:09 amlodi pine 10 mg tablet 2022 023 [email or web address] [facility] #42858, [address], [place], [place], [id number], 4 14:42:42 Dulcol ax (bisac odyl) 5 mg tablet ,delay ed releas e 2022 024 [facility]71819, [address], [place], [place], [id number], 4 14:43:24 Mirala x 17 gram/d ose oral powder 2022 024 [facility]60, [address], [place], [place], [id number], 4 14:43:54 Zepbou nd 2.5 mg/0.5 mL subcut aneous pen inject or 2023 024 [facility]451, [address], [place], [place], [id number], 4 17:44:46 Patient TargetsNo targets recorded. Patient Instructions Encounter Date Encounter Id Patient Instructions Last Modified By Organization Details Last Modified Time 06/19/2022 [id number] Attending Physician Addendum I personally saw and examined the patient with the resident. I have reviewed the documentation and agree with the history, physical findings, work-up, and medical decision making as recorded. Alcira Walker MD Not available 06/22/2022 11:18:58 07/22/2022 [id number] A healthy lifestyle: care instructions [email or web address] Not available 07/22/2022 12:04:07 Attending Physician Attestation I did not personally see or examine the patient with the resident. I was physically present to provide indirect supervision through entire encounter. I have reviewed the documentation and agree with the history, physical findings, work-up, and medical decision making as recorded. Rosey Cunha MD [email or web address] Not available 07/28/2022 09:41:30 08/05/2022 [id number] A healthy lifestyle: care instructions [email or web address] Not available 08/08/2022 13:24:15 On the date of this encounter, I saw and examined the patient, personally verifying the wu and critical findings in the resident? s note. I reviewed and agree with the resident/fellow? s findings and plan. ~MD Maxine [email or web address] Not available 08/18/2022 12:39:27 09/07/2022 [id number] RL About Your Colonoscopy 1 Day Prep Not available 09/07/2022 11:59:32 05/24/2023 [id number] A healthy lifestyle: care instructions [email or web address] Not available 05/24/2023 15:02:56 I was present in the office and available during the visit. I discussed the patient? s presentation, findings, assessment and plan with the resident during or immediately after the time of service. I agree with the resident? s findings, assessment, and plan as documented in the note above. Asad Dewitt MD. [facility] [email or web address] Not available 05/25/2023 11:13:02 Reason for Referral Vein Specialist Referral for Varicose veins of lower extremity Polish-speaking only. Failed conservative measures. Referring Physician: Jovi Walker, E Commerce Solution Architect, Encounter Date: 06/19/2022 Physical Therapist Referral for Right flank pain Referring Physician: Jovi Walker, E Commerce Solution Architect, Encounter Date: 06/19/2022 Insulation Blower Referral for Screening for malignant neoplasm of colon Referring Physician: Jovi Wakler E Commerce Solution Architect, Encounter Date: 05/24/2023 Apparel Machinery Instructor/dietitian Refer ral for Morbid obesity Referring Physician: Jovi Walker, E Commerce Solution Architect, Encounter Date: 05/24/2023 Results Created Date Observation Date Name Description Value Unit Range Abnormal Flag Note LastModifiedBy Organization Detail LastModifiedTime 06/20/19 23 06/19/2022 COMP. METAB OLIC PANEL (14) glucose 94 mg/dL 65-99 ANION GP 11.0 mmol/ L N OSMOL 282.0 mOsM/ L N REFER ENCE RANGE : 275.0 -301. 0 Not Available [facility] [address] [place], [address], 06/19/2022 19:08:45 06/20/19 23 06/19/2022 COMP. METAB OLIC PANEL (14) BUN 10 mg/dL 8-26 Not Available [facility] [address] [place], [address], 06/19/2022 19:08:45 06/20/19 23 06/19/2022 COMP. METAB OLIC PANEL (14) creatinine 0.41 mg/dL 0.50-1 .40 below low normal Not Available [facility] [address] [place], [address], 06/19/2022 19:08:45 06/20/19 23 06/19/2022 COMP. METAB OLIC PANEL (14) eGFR 116 mL/mi n/1.7 3 >=60 Not Available [facility] [address] [place], [address], 06/19/2022 19:08:45 06/20/19 23 06/19/2022 COMP. METAB OLIC PANEL (14) BUN/creatini ne ratio 23.7 Not Available [facility] Department [address] [place], [address], 06/19/2022 19:08:45 06/20/19 23 06/19/2022 COMP. METAB OLIC PANEL (14) sodium 142.0 mmol/ L 136.0- 144.0 Not Available [facility] [address] [place], [address], 06/19/2022 19:08:45 06/20/19 23 06/19/2022 COMP. METAB OLIC PANEL (14) potassium 4.0 mmol/ L 3.5-5. 3 Not Available [facility] [address] [place], [address], 06/19/2022 19:08:45 06/20/19 23 06/19/2022 COMP. METAB OLIC PANEL (14) chloride 106 mmol/ l 101-11 1 Not Available [facility] [address] [place] [address], [address], 06/19/2022 19:08:45 06/20/19 23 06/19/2022 COMP. METAB OLIC PANEL (14) carbon dioxide, total 29.7 mmol/ L 21.0-3 2.0 Not Available [facility] [address] [place], [address], 06/19/2022 19:08:45 06/20/19 23 06/19/2022 COMP. METAB OLIC PANEL (14) calcium 8.9 mg/dL 8.2-10 .0 Not Available [facility] [address] [place], [address], 06/19/2022 19:08:45 06/20/19 23 06/19/2022 COMP. METAB OLIC PANEL (14) protein, total 7.1 g/dL 6.7-8. 2 Not Available [facility] [address] [place], [address], 06/19/2022 19:08:45 06/20/19 23 06/19/2022 COMP. METAB OLIC PANEL (14) albumin 4.1 g/dL 3.5-5. 5 Not Available [facility] [address] [place] [address], [address], 06/19/2022 19:08:45 06/20/19 23 06/19/2022 COMP. METAB OLIC PANEL (14) globulin, total 3.0 g/dL 1.5-4. 5 Not Available [facility] [address] [place], [address], 06/19/2022 19:08:45 06/20/19 23 06/19/2022 COMP. METAB OLIC PANEL (14) A/G ratio 1.4 Not Available [facility] Department [address] [place] [address], [address], 06/19/2022 19:08:45 06/20/19 23 06/19/2022 COMP. METAB OLIC PANEL (14) bilirubin, total 0.6 mg/dL 0.0-1. 2 Not Available [facility] [address] [place] [address], [address], 06/19/2022 19:08:45 06/20/19 23 06/19/2022 COMP. METAB OLIC PANEL (14) alkaline phosphatase 103.4 IU/L 42.0-1 21.0 Not Available [facility] [address] [place] [address], [address], 06/19/2022 19:08:45 06/20/19 23 06/19/2022 COMP. METAB OLIC PANEL (14) AST (SGOT) 14.3 U/L 10.0-4 2.0 Not Available [facility] [address] [place], [address], 06/19/2022 19:08:45 06/20/19 23 06/19/2022 COMP. METAB OLIC PANEL (14) ALT (SGPT) 14.2 U/L 10.0-6 0.0 Not Available [facility] [address] [place] [address], [address], 06/19/2022 19:08:45 06/20/19 23 06/20/2022 ACUTE HEPAT ITIS hep A Ab, IgM Negati ve negati ve Not Available [facility] ([facility]) [address] [facility], [place], [address], 06/20/2022 06:15:41 06/20/19 23 06/20/2022 ACUTE HEPAT ITIS HBsAg screen Negati ve negati ve Not Available [facility] ([facility]) [address] [facility], [place], [address], 06/20/2022 06:15:41 06/20/19 23 06/20/2022 ACUTE HEPAT ITIS hep B core Ab, IgM Negati ve negati ve Not Available [facility] ([facility]) [address] [facility], [place], [address], 06/20/2022 06:15:41 06/20/19 23 06/20/2022 ACUTE HEPAT ITIS HCV Ab Non Reacti ve nonrea ctive Not Available [facility] ([facility]) [address] [facility], [place], [address], 06/20/2022 06:15:41 06/20/19 23 06/20/2022 TSH RFX ON ABNOR MAL TO FREE T4 TSH 4.360 uIU/m L 0.450- 4.500 Not Available [facility] ([facility]) [address] [facility], [place], [address], 06/20/2022 06:15:42 06/20/19 23 06/20/2022 INTER PRETA TION: interpretati on: Commen t Not infec chrystal with HCV unles s early or acute infec tion is suspe cted (whic h may be delay ed in an immun ocomp romis ed indiv idual ), or other evide nce exist s to indic ate HCV infec tion. Not Available [facility] ([facility]) [address] [facility], [place], [address], 06/20/2022 06:15:41 05/24/19 24 05/25/2023 COMP. METAB OLIC PANEL (14) glucose 85 mg/dL 70-99 Not Available [facility] ([facility]) [address] [place], [address], 05/25/2023 13:10:50 05/24/19 24 05/25/2023 COMP. METAB OLIC PANEL (14) BUN 11 mg/dL 6-24 Not Available [facility] ([facility]) [address] [place], [address], 05/25/2023 13:10:50 05/24/19 24 05/25/2023 COMP. METAB OLIC PANEL (14) creatinine 0.44 mg/dL 0.57-1 .00 below low normal Not Available [facility] ([facility]) [address] [place], [address], 05/25/2023 13:10:50 05/24/19 24 05/25/2023 COMP. METAB OLIC PANEL (14) eGFR 113 mL/mi n/1.7 3 >59 Not Available [facility] ([facility]) [address] [place], [address], 05/25/2023 13:10:50 05/24/19 24 05/25/2023 COMP. METAB OLIC PANEL (14) BUN/creatini ne ratio 25 9-23 above high normal Not Available [facility] ([facility]) [address] [place], [address], 05/25/2023 13:10:50 05/24/19 24 05/25/2023 COMP. METAB OLIC PANEL (14) sodium 142 mmol/ L 134-14 4 Not Available [facility] ([facility]) [address] [place], [address], 05/25/2023 13:10:50 05/24/19 24 05/25/2023 COMP. METAB OLIC PANEL (14) potassium 4.1 mmol/ L 3.5-5. 2 Not Available [facility] ([facility]) [address] [place], [address], 05/25/2023 13:10:50 05/24/19 24 05/25/2023 COMP. METAB OLIC PANEL (14) chloride 102 mmol/ L 96-106 Not Available [facility]) [address] [place], [address], 05/25/2023 13:10:50 05/24/19 24 05/25/2023 COMP. METAB OLIC PANEL (14) carbon dioxide, total 28 mmol/ L 20-29 Not Available [facility]) [address] [place], [address], 05/25/2023 13:10:50 05/24/19 24 05/25/2023 COMP. METAB OLIC PANEL (14) calcium 8.4 mg/dL 8.7-10 .2 below low normal Not Available [facility] ([facility]) [address] [place], [address], 05/25/2023 13:10:50 05/24/19 24 05/25/2023 COMP. METAB OLIC PANEL (14) protein, total 6.7 g/dL 6.0-8. 5 Not Available [facility]) [address] [place], [address], 05/25/2023 13:10:50 05/24/19 24 05/25/2023 COMP. METAB OLIC PANEL (14) albumin 4.3 g/dL 3.8-4. 9 Not Available [facility] ([facility]) [address] [place], [address], 05/25/2023 13:10:50 05/24/19 24 05/25/2023 COMP. METAB OLIC PANEL (14) globulin, total 2.4 g/dL 1.5-4. 5 Not Available [facility] ([facility]) [address] [place], [address], 05/25/2023 13:10:50 05/24/19 24 05/25/2023 COMP. METAB OLIC PANEL (14) A/G ratio 1.8 1.2-2. 2 Not Available [facility]) [address] [place], [address], 05/25/2023 13:10:50 05/24/19 24 05/25/2023 COMP. METAB OLIC PANEL (14) bilirubin, total 0.4 mg/dL 0.0-1. 2 Not Available [facility]) [address] [place], [address], 05/25/2023 13:10:50 05/24/19 24 05/25/2023 COMP. METAB OLIC PANEL (14) alkaline phosphatase 119 IU/L 44-121 Not Available [facility] [address] [place], [address], 05/25/2023 13:10:50 05/24/19 24 05/25/2023 COMP. METAB OLIC PANEL (14) AST (SGOT) 16 IU/L 0-40 Not Available [facility]) [address] [place], [address], 05/25/2023 13:10:50 05/24/19 24 05/25/2023 COMP. METAB OLIC PANEL (14) ALT (SGPT) 15 IU/L 0-32 Not Available [facility]) [address] [place], [address], 05/25/2023 13:10:50 05/24/19 23 04/22/2021 XR, knee No observ ation record ed. [facility] [address] [place], [address], 05/26/2022 11:34:49 03/25/10/28/2021 MAMMO , scree hamida, digit al, bilat eral No observ ation record ed. [address] ([facility]) [address] [place], [address], 05/26/2022 11:34:49 06/12/19 23 06/11/2022 US, abdom en, compl ete No observ ation record ed. [address] [place], [address], 06/12/2022 11:04:42 07/18/19 23 07/17/2022 CT, abdom en, w/o contr ast No observ ation record ed. [facility] [address] [place], [address], 07/23/2022 13:34:00 12/24/19 24 12/24/2023 imagi ng/di agnos tic resul t No observ ation record ed. [address] [place], [address], 12/28/2023 18:42:49 12/24/19 24 12/24/2023 imagi ng/di agnos tic resul t No observ ation record ed. [address] [place], [address], 12/28/2023 18:42:49 Result Notes None recorded. Problems Name Problem SNOMED Code Status Onset Date Resolution Date Notes Provider Name and Address Organization Details Recorded Time Pain of bilateral knee regions [id number] 02 Active 2021 Worse on right Dwayne Steele MD Attn: Lily pineda,[address] [facility] [address], [place], [address], [place] 11:32:59 Morbid obesity 986298025 Active 2021 Mani Álvarez MD Attn: Lily pineda,[address] [facility], [place], [address] 3 10:52:07 History of cholecystec elieser 560634738 Active 2021 Mani Álvarez MD Attn: Lily pineda,[address] [place], [address], [place] [facility] 3 10:52:45 Vitamin D deficiency 58625705 Active 2021 Dwayne Steele MD Attn: Lily pineda,[address] [place], [address], [place] [facility] 2 06:17:20 Right flank pain 057100459 Active 2022 Jovi Walker MD Attn: Lily pineda,[address] [place], [address], [place] [facility] 3 11:12:24 Sciatica 55148676 Active 2022 Jovi Walker MD Attn: Lily pineda,[address] [place], [address], [place] [facility] 3 11:12:26 Varicose veins of lower extremity 30399724 Active 2022 Mani Álvarez MD Attn: Lily pineda,[address] [place], [address], [place] [facility] 3 10:52:22 Steatosis of liver 538934544 Active 2022 Mani Álvarez MD Attn: Lily pineda,[address] [place], [address], [place] [facility] 3 10:52:11 Subclinical hypothyroid ism 67908845 Active 2022 Jovi Walker MD Attn: Lily pineda,[address] [place], [address], [place] [facility] 3 18:42:11 Gastroesoph ageal reflux disease 468933732 Active 2022 Mani Álvarez MD Attn: Lily pineda,[address], [place], [address], [place] [facility] 3 10:51:50 Essential hypertensio n 21486029 Active 2022 Mani Álvarez MD Attn: Lily pineda,[address], [place], [address], [place] [facility] 3 10:51:46 Problem Notes None recorded. Procedures Surgical History Date Name Laterality Status Provider Name and Address Organization Details Recorded Time 10/29/19 Most Recent Mammogram completed Margie Garcia RN [place] 10/29/2021 15:39:26 10/22/19 Date of Last Pap Smear completed Lashawn Bear [facility] 10/21/2021 15:34:47 cholecystectomy completed Daxa Paula MA [place] - [place] 04/17/2021 10:38:54 delivery completed Lashawn Bear [facility] 10/21/2021 15:36:31 Imaging Results Imaging Date Name Status [facility]Modified by [facility] Details LastModified Time 04/22/2021 XR, knee completed [address] [place], [address], 05/26/2022 11:34:49 10/28/2021 MAMMO, screening, digital, bilateral completed [address] ([facility]) [address] [place], [address], 05/26/2022 11:34:49 06/11/2022 US, abdomen, complete completed [address] [place], [address], 06/12/2022 11:04:42 07/17/2022 CT, abdomen, w/o contrast [email or web address] [address] [place], [address], 07/23/2022 13:34:00 12/24/2023 imaging/diagno stic result active [email or web address] [facility] [address] [place], [address], 12/28/2023 18:42:49 12/24/2023 imaging/diagno stic result active [email or web address] [facility] [address] [place], [address], 12/28/2023 18:42:49 Procedure Notes None recorded. Medical Equipment None Reported. Allergies Allergen ID Allergen Name Allergen Category Reaction Reaction Severity Criticality Documentation Date Start Date Code Code System Note Provider Name and Address Organization Details Recorded Time [id number] Advil medicatio n facial swelling Not available Not available 04/17/2021 01328 0 RxNorm Not Available Not Available Not Available Medications Name Sig Start Date Stop Date Status Note LastModified by Organization Details LastModified Time azithromyci n 250 mg tablet 10/21 completed Not Available Not Available Not Available acetaminoph en 500 mg tablet TAKE 2 TABLETS BY MOUTH EVERY 6 HOURS 08/05 completed Not Available Not Available Not Available famotidine 20 mg tablet TAKE 1 TABLET BY MOUTH TWICE DAILY 08/05 completed Not Available Not Available Not Available amlodipine 10 mg tablet TAKE 1 TABLET BY MOUTH EVERY DAY 05/23 completed Not Available Not Available Not Available benzonatate 100 mg capsule TAKE 1 CAPSULE BY MOUTH THREE TIMES DAILY 10/21 completed Not Available Not Available Not Available losartan 25 mg tablet TAKE 1 TABLET BY MOUTH EVERY DAY 08/05 completed Not Available Not Available Not Available ergocalcife rol (vitamin D2) 1,250 mcg (50,000 unit) capsule Take 1 capsule every week by oral route. 10/21 completed Not Available Not Available Not Available naproxen 500 mg tablet TAKE 1 TABLET BY MOUTH TWICE DAILY active Not Available Not Available No t Available Dulcolax (bisacodyl) 5 mg tablet,jero yed release At 2:00 PM the day before the colonosco py, take all 4 tablets of Dulcolax by mouth at one time with 8 ounces of water 05/23 completed Not Available Not Available Not Available lidocaine 5 % topical ointment ON KNEE APPLY TO AFFECTED AREA(S) BY TOPICAL ROUTE 1-4 TIMES DAILY NEEDED 10/21 completed Not Available Not Available Not Available Aspercreme (lidocaine) 4 % topical patch Apply 1 patch up to 12 hours. 05/23 completed Not Available Not Available Not Available Zepbound 2.5 mg/0.5 mL subcutaneou s pen injector Inject 2.5 mg every week by subcutane ous route, for weight loss. 2023 active Not Available Not Available Not Avai lable Vitals Date Recorded Body height Provider Name an d Address Organization Details Last Updated DateTime 06/19/2022 157.48 cm Cassy Hayden LPN [facility] 06/19 09:40:42 Date Recorded Body mass index (BMI) Body weight Provider Name and Address Organization Details Last Updated DateTime 06/19/2022 42.5 kg/m2 713485.83 g Cassy Hayden LPN [facility] 06/19/2022 09:40:58 Date Recorded Heart rate Provider Name an d Address Organization Details Last Updated DateTime 06/19/2022 61 /min Cassy Hayden LPN [facility] 06/19 09:41:18 Date Recorded Body temperature Provider Name a nd Address Organization Details Last Updated DateTime 06/19/2022 97.6 [degF] Cassy Hayden LPN [facility] 06/19/2022 09:41:43 Date Recorded Respiratory rate Provider Name a nd Address Organization Details Last Updated DateTime 06/19/2022 16 /min Cassy Hayden LPN [facility] 06/19/2022 09:41:39 Date Recorded Oxygen saturation Oxygen saturation in Arterial blood by Pulse oximetry Provider Name and Address Organization Details Last Updated DateTime 06/19/2022 96 % 96 % Cassy Hayden LPN [facility] 06/19/2022 09:41:52 Date Recorded Body height Provider Name an d Address Organization Details Last Updated DateTime 07/22/2022 157.48 cm VIANNEY Mendoza [facility] 2022 11:01:39 Date Recorded Body mass index (BMI) Body weight Provider Name and Address Organization Details Last Updated DateTime 07/22/2022 42.3 kg/m2 405788.29 g Kerry Rincon MA [place] 07/22/2022 11:01:43 Date Recorded Heart rate Provider Name an d Address Organization Details Last Updated DateTime 07/22/2022 53 /min Kerry Rincon MA [place] [facility] 2022 11:02:17 Date Recorded Body temperature Provider Name a nd Address Organization Details Last Updated DateTime 07/22/2022 98 [degF] Kerry Rincon MA [place] [facility] 07/22/2022 11:02:20 Date Recorded Respiratory rate Provider Name a nd Address Organization Details Last Updated DateTime 07/22/2022 16 /min Kerry Rincon MA [place] [facility] 07/22/2022 11:02:22 Date Recorded Body height Provider Name an d Address Organization Details Last Updated DateTime 08/05/2022 157.48 cm Lashawn Bear [facility] 2022 10:25:34 Date Recorded Body mass index (BMI) Body weight Provider Name and Address Organization Details Last Updated DateTime 08/05/2022 42 kg/m2 392716.45 g Lashawn Bear [facility] 08/05/2022 10:25:46 Date Recorded Body temperature Provider Name a nd Address Organization Details Last Updated DateTime 08/05/2022 97.8 [degF] Lashawn Bear [facility] 08/05/2022 10:26:01 Date Recorded Respiratory rate Provider Name a nd Address Organization Details Last Updated DateTime 08/05/2022 16 /min Lashawn Bear [facility] 08/05/2022 10:26:05 Date Recorded Heart rate Provider Name an d Address Organization Details Last Updated DateTime 08/05/2022 65 /min Lashawn Bear [facility] 2022 10:26:52 Date Recorded Oxygen saturation Oxygen saturation in Arterial blood by Pulse oximetry Provider Name and Address Organization Details Last Updated DateTime 08/05/2022 98 % 98 % Lashawn Bear [facility] 08/05/2022 10:26:55 Date Recorded Body height Provider Name an d Address Organization Details Last Updated DateTime 09/07/2022 157.48 cm Shreya Cramer [facility] - [facility] 09/07/2022 11:46:28 Date Recorded Body mass index (BMI) Body weight Provider Name and Address Organization Details Last Updated DateTime 09/07/2022 41.5 kg/m2 747141.39 g Shreya Cramer [facility] - [facility] 0 09/07/2022 11:46:39 Date Recorded Heart rate Provider Name an d Address Organization Details Last Updated DateTime 09/07/2022 57 /min Shreya BARNES - [facility] 09/07/2022 11:46:53 Date Recorded Body temperature Provider Name a nd Address Organization Details Last Updated DateTime 09/07/2022 97.1 [degF] Shreya Cramer [facility] - [facility] 11:46:57 Date Recorded Body height Provider Name an d Address Organization Details Last Updated DateTime 05/24/2023 157.48 cm Esha Rod MA [facility] 05/24/2023 14:42:00 Date Recorded Body mass index (BMI) Body weight Provider Name and Address Organization Details Last Updated DateTime 05/24/2023 42.5 kg/m2 416473.23 g Esha Rod MA [facility] 05/24/2023 14:42:10 Date Recorded Heart rate Provider Name an d Address Organization Details Last Updated DateTime 05/24/2023 60 /min Esha Rod MA [facility] 04/30 14:42:20 Date Recorded Body temperature Provider Name a nd Address Organization Details Last Updated DateTime 05/24/2023 97.8 [degF] Esha Rod MA [facility] 05/24/2023 14:42:26 Date Recorded Respiratory rate Provider Name a nd Address Organization Details Last Updated DateTime 05/24/2023 18 /min Esha Rod MA [facility] 05/24/2023 14:42:28 Date Recorded Oxygen saturation Oxygen saturation in Arterial blood by Pulse oximetry Provider Name and Address Organization Details Last Updated DateTime 05/24/2023 98 % 98 % Esha Rod MA [facility] 05/24/2023 14:42:31 Date Recorded Systolic blood pressure Diastolic blood pressure Provider Name and Address Organization Details Last Updated DateTime 06/19/2022 148 mm[Hg] 88 mm[Hg] Cassy Hayden LPN [facility] 06/19/2022 09:41:13 Date Recorded Systolic blood pressure Diastolic blood pressure Provider Name and Address Organization Details Last Updated DateTime 07/22/2022 152 mm[Hg] 96 mm[Hg] Kerry Rincon MA [facility] 07/22/2022 11:02:13 Date Recorded Systolic blood pressure Diastolic blood pressure Provider Name and Address Organization Details Last Updated DateTime 08/05/2022 134 mm[Hg] 81 mm[Hg] Lashawn Ospinalane Bear [facility] 08/05/2022 10:27:54 Date Recorded Systolic blood pressure Diastolic blood pressure Provider Name and Address Organization Details Last Updated DateTime 09/07/2022 145 mm[Hg] 81 mm[Hg] Shreya Krasuborn [facility] 09/07/2022 11:46:50 Date Recorded Systolic blood pressure Diastolic blood pressure Provider Name and Address Organization Details Last Updated DateTime 05/24/2023 120 mm[Hg] 75 mm[Hg] Esha Rod MA [facility] 05/24/2023 14:42:17 Social History Question Answer Notes LastModified by Organizat ion Details LastModified Time Tobacco Smoking Status Never Smoker Daxa Paula MA null, [facility] 04/17/2021 10:39:06 What Is Your Level Of Alcohol Consumption? None [email or web address] Information not available 10/21/2021 In The 14 Days Before Symptom Onset, Have You Had Close Contact With A Laboratory-confirm ed COVID-19 While That Case Was Ill? No [email or web address] Information n ot available 10/21/2021 In The 14 Days Before Symptom Onset, Have You Had Close Contact With A Person Who Is Under Investigation For COVID-19 While That Person Was Ill? No [email or web address] Information not available 10/21/2021 Have You Been To An Area Known To Be High Risk For COVID-19? No [email or web address] Information not available 10/21/2021 Are You Currently Employed? 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 05/24/2023 [email or web address] Information not available 05/24/2023 Are You Sexually Active? No [email or web address] Information not available 10/21/2021 Do You Have Smoke And Carbon Monoxide Detectors In Your Home? Yes [email or web address] Information not available 10/21/2021 Are You Passively Exposed To Smoke? No [email or web address] Information no t available 10/21/2021 Do You Use Any Illicit Or Recreational Drugs? No [email or web address] Information not available 10/21/2021 Do You Or Have You Ever Used Any Other Forms Of Tobacco Or Nicotine? No [email or web address] Information not available 10/21/2021 Sex: Female Functional Status None recorded. Mental Status None recorded. Family History Relationship Description Onset Age of this Age Resolved Age Notes LastModified by Organization Details LastModified Time Father No current problems or disability [email or web address] Not available 04/17 10:39:14 Mother No current problems or disability [email or web address] Not available 04/17 10:39:14 Notes:nothing new 05/24/23 Medical History Condition Response Coronary Artery Disease N Other N High Blood Pressure Y Atrial Fibrillation N Kidney or Bladder Problems N Thyroid Problems N GI Problems N Depression N COPD N Blood Clots N Skin Problems N Anemia N Heart Attack (ND) N Anxiety Disorder N Diabetes N Muscle, Joint, or Bone Problems N Seizures/Epilepsy N Acid Reflux (GERD) N Cancer N Stroke N Asthma N Allergies N High Cholesterol N Hepatitis N Liver Disease N Headaches N Heart Failure N Osteoporosis N Gynecological History Statement/Question Response If Post Menopausal, Age at Menopause 52 Menses Monthly N Date of Last Pap Smear 10/21/2021 Age at Menarche 14 Current Control Method Menopause Most Recent Mammogram 10/28/2021 Age at First Child 25 LMP Unknown Obstetrics History GPAL:G 5 P 5 0 0 5 Type Value Full Term 5 Living 5 Total 5 Immunizations Vaccine Type Date Status Note Provider Tomasz akhtar and Address Organization Details Recorded Time COVID-19, mRNA, LNP-S, PF, 30 mcg/0.3 mL dose 11/03/2020 completed Jovi Walker MD Attn: [address] [place], [address], [facility] 05/01/2022 18:12:28 COVID-19, mRNA, LNP-S, PF, 30 mcg/0.3 mL dose 01/21/2021 completed Jovi Walker MD Attn: [address] , [place], [address], [facility] 05/01/2022 18:12:28 Past Encounters Encounter ID Performer Location Encounter Start Date Encounter Closed Date Diagnosis/Indication Diagnosis SNOMED-CT Code Diagnosis ICD10 Code Diagnosis Note [id number] [facility] [address] [place] [address] 04/17/2021 10:15:46 04/18/2021 08:25:16 Pain of bilateral knee regions 1827428424 15686 M25.561 M25.562 Abnormal weight gain 161 435093 R63.5 Morbid obesity 565588173 E66.01 [id number] Fidelia Funez, [facility]- [place] [address] OB [address] [facility] [address] [place] [address] 10/21/2021 15:13:28 10/22/2021 07:39:52 Gynecologic examination 66566412 Z01.419 1. Counseled regarding prevention of STD's , condom use and prevention . 2. Counseled regarding contracept fernando options, risk factors and side effects. 3. Advised avoidance of tobacco, alcohol, and drugs . 4. Counseled regarding folic acid supplement ation, calcium needs and prevention of osteoporos is . 5. BSE reviewed and recommende d. 6. Follow up in one year or sooner if needed. Screening mammography 24 430181 Z12.31 Importance of yearly mammograms and sbe exam discussed with pt. Mammogram order given, pt verbalized understand ing. Vaginal discharge 538569 006 N89.8 Nuswab done and sent to lab. Counseled on STD prevention and condom use. Counseled on yeast and BV prevention . Will follow up pending lab results. Uterine prolapse 2977098 5 N81.4 Will refer to urogyn for consult. Pt v/u. [id number] MD [place]aja Galindo 14 IM 4 [facility] [address] [place] [address] 05/01/2022 09:00:48 05/04/2022 10:45:34 Morbid obesity 957976925 E66.01 Discussed diet at length including healthier food options, increase vegetable and fiber intake, reduce salt intake, incorporat e yoga/stret danette practices and exercise 30 min 5 x per week to improve cardiovasc ular health. Likely contributi ng to her varicose veins, sciaticaDA SH dietWeight loss - talked about Trulicity and Ozempic (most recently in low supply - will check with Roman)TS H, cholestero l uvwusOgW6l prediabeti c Adult heal th examination 311092916 Z00.00 Last blood work over 1 year priorTDaP and COVID booster at next visit Right flank pain 3769985 09 R10.9 Hx of cholecyste ctomyNo dysuria, abdominal pain, nausea, vomiting so less likely kidney stone or pancreatit isMay consider imaging if pain worsens and all labs are normalLipa se ordered. UA ordered. Sciatica 05914674 M54.31 Patient would benefit from weight loss and PTPatient will try to find out the location/# of the PT she had been seeing for her knee painPatien t likely had bad reaction to gabapentin but unsureWill ask for medical records to verify which 'nerve pain' med caused her extreme drowsiness Varicose v eins of lower extremity 81877558 I83.893 Instructed patient to wear compressio n stockingsD ecrease salt in diet (DASH diet)Weigh t lossInstru cted patient to keep legs elevated on 3 pillows when laying downTake breaks when possible if standing all day at workWear compressio n stockingsS clerothera py if has continued pain unrelieved by conservati ve measures Elevated blood-pressure reading without diagnosis of hypertension 669687965 R03.0 BP 150/100No prior Hx of HTNDASH dietExerci seRTC in 2-3 weeks Screening for malignant neoplasm of colon 936475858 Z12.11 Never had colonoscop y [id number] MD [place] Hassan 14 IM 4 [facility] [address] [place] [address] 06/19/2022 09:25:11 06/22/2022 15:47:20 Right flank pain 462969622 R10.9 Hx of cholecyste ctomySympt oms sound mostly MSK as patient is tender to palpation and pain worsens with movementHo wever, also has pain associated with foods, particular ly fatty/heav y - possible Sphincter of Oddi dysfunctio n, HbA1c 5.9 last month - not diabetic - not gastropare sisNo dysuria, abdominal pain, nausea, vomiting so less likely kidney stone or pancreatit isLipase, UA negative last monthPt to call back with surgeon's name who performed cholecyste ctomyIf unable to find surgeon's name, will make referral to new surgeon to investigat e post-sheridan cystectomy flank painMSK pain will be treated with Tylenol Extra Strength as NSAIDs may worsen GI symptomsRe ferral to PT made Steatosis of liver 1007 K76.0 Recent abdominal US with hepatomega ly, steatosis, cirrhotic changesUlt rasound unable to penetrate liver due to echogenici tyHepatiti s panel orderedLik woody POPE Varicose v eins of lower extremity 51227258 I83.893 Instructed patient to wear compressio n stockingsD ecrease salt in diet (DASH diet)Weigh t loss - has lost 10 pounds in last couple of monthsInst ructed patient to keep legs elevated on 3 pillows when laying downTake breaks when possible if standing all day at workContin ue to wear compressio n stockingsP atient open to vein specialist as conservati ve measure providing minimal improvemen t Subclinica l hypothyroidism 19077400 E02 TSH 4.8 with normal T4 in [facility] recheck today Gastroesop hageal reflux disease 820432636 K21.9 Night time cough likely GERD based on symptomsPo ssible underlying ALLI as wellWill start with famotidine 20mg BID Hypernatremia 323913988 E87.0 Last Na 151 - will recheck - no previous elevated Na per chart reviewBloo dwork came back same day and Na 142.Hypern atremia resolved. Essential hypertension 88857112 I10 BP 148/88.Can now officially dx with HTN as 2+ readings of elevated BPBP cuff given to patient from clinic - she is medicaidTa ke BP readings twice daily and log, bring in at next visitStart Losartan 25mg daily (avoiding lisinopril as may worsen cough)RTC in 1 month [id number] MD [place] RAND 14 IM 4 [facility] [address] [place] [address] 07/22/2022 10:49:03 07/31/2022 10:10:52 Morbid obesity 817669855 E66.01 healthy lifestyle encouraged including regular exercise of at least 150min per week, diet rich in plant based foods and low in added sugars, processed carbohydra osiris, and high salt foods. Essential hypertension 19506531 I10 pt reports non compliance with losartan, due to feeling tired.Will change medication to amlodipine 10mgpt to keep a log of Bp for the next 2 weeks and return to the office Varicose v eins of lower extremity 70401998 I83.893 Instructed patient to continue to wear compressio n stockingsk eep legs elevated when laying downpt has been given a vein specialist referral but has not been seen yet Hernia of anterior abdominal wall 470167155 K43.[address] abdomen on 07/17/2022 that was suggestive of ventral herniaThe hernia measured to be 5.4 by 3 cm located midlineCur rently not obstructiv e and pt with out any issues at this time didn't want to be evaluated by surgery Spinal kenji nosis of lumbar region 41812978 M48.061 pt reports chronic midline back pain that is worse with lying flat and standing. No radiation of the pain down the legs. Pain improve with leaning forwardCT abdomen/pe lvis on 07/17/2022: multilevel degenerati ve changes, with severe spinal stenosis at the L4-L5 level--> pt currently not interested in surgical evaluation Last visit PT was ordered, pt encouraged to attend PTpain management with tylenol as needed Cirrhosis - non-alcoholic 995242561 K74.[address] abdomen on 07/17/2022: mild decrease in the liver volume. Mild nodular marginatio n of the right hepatic lobe.PT has had a hepatits panel done on 3 and it was unremarkab leNo alcohol use disorder, will rule out autoimmune hepatits by ordering the antibodies and will also order alpha antitrypsi n--> if both are negative most commonly due to POPE [id number] MD [place] Galindo 14 IM 4 [facility] [address] [place] [address] 08/05/2022 10:18:01 08/10/2022 16:52:57 Steatosis of liver K76.0 discussed lifestyle modificati ons to reduce damage to liver. No tylenol use explained. Right flank pain 0385563 09 R10.9 muscular in origin. Nothing to do right now. ibuprofen discussed w/ pt and exercises. Essential hypertension 79884045 I10 blood pressure well controlled today. No s/s of hypotensio n reported by pt. Appears to be doing well on current medication .- continue amlodipine 10mg daily Morbid obesity 815619389 E66.01 BMI: 42 - Discussed lifestyle modificati ons such as diet and exercise. Suggested to eat portions about the size of the palm of their hand and to cut out added sugars to their diet, and to exercise by doing what they like to do for at least 3 hrs a wk for health maintenanc e and 5-7 hrs per wk for weight loss. - discussed adverse health effects of obesity such as DM, HLD, and cancer risk [id number] DANIEL KINCAID [facility] [address] [place] [address] 09/07/2022 10:49:42 09/14/2022 09:13:24 Screening for malignant neoplasm of colon 481208820 Z12.11 First colonoscop y. No FH of colon cancer.CBC 05/02/31 and CMP 06/19/22 in chart Right uppe r quadrant pain 442839629 R10.11 [id number] MD [place] Hong 14 IM 4 [facility] [address] [place] [address] 05/24/2023 14:13:11 05/26/2023 10:44:58 Morbid obesity 727017123 E66.01 Discussed diet at length including healthier food options, increase vegetable and fiber intake, reduce salt intake, incorporat e yoga/stret danette practices and exercise 30 min 5 x per week to improve cardiovasc ular health. 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 Will order Fibroscan to assess extent of fibrosis. While liver bx remains the gold standard for diagnosis of cirrhosis, there has been more studies which recommend Fibroscan as an excellent alternativ e for non-invasi ve diagnosis of cirrhosis. LFTs WNL one year ago.- CMP- Fibroscan ordered Screening for malignant neoplasm of colon 486522009 Z12.11 No hx of any prior colonoscop ies Backache 839582422 M54.9 Right mid back. Due to worsening with movement and response to conservati ve treatment with Tylenol, likely MSK in nature. Weight also likely contributo ry.- Tylenol (up to 2g/day) in setting of likely cirrhosis; avoid NSAIDs- Discussed weight loss (see morbid obesity ) Health Concerns Section Related Observation LastModified by Organization Detai ls LastModified Time None Recorded Concern Status LastModified by Organization Details LastModified Time None Recorded Advance Directives Directive None Recorded Payers Encounter Date Sequence Insurance Name Policy Number Policy Bennett Covered Member ID Bennett Member ID Guarantor Name 06/19/2022 1 [facility] (MEDICAID REPLACEMENT - O) [id number] Promise Sarkis [id number] Promise Sarkis 07/22/2022 1 [facility] (MEDICAID REPLACEMENT - HMO) [id number] Promise Sarkis [id number] Promise Sarkis 08/05/2022 1 [facility] (MEDICAID REPLACEMENT - HMO) [id number] Promise Sarkis [id number] Rpomise Sarkis 09/07/2022 1 [facility] (MEDICAID REPLACEMENT - HMO) [id number] Promise Sarkis [id number] 16 Promise Sarkis Notes Date Note Type Note Provider Name and Address Organization Details Recorded Time 06/19/2022 text/html 56 yo female wit h a hx of morbid obesity who presents for follow up of BP and chronic right flank pain. Last BP was 150/100 in clinic. No previous hx of HTN. Elevated BPPatient unable to get BP cuff from pharmacy. No BP log data. Denies any vision changes, headaches, chest pain, palpitations. Right flank painPatient reports right flank pain radiating to back for close to 2 years. Started 2 months after she had gallbladder removed. Pain is worse with movement and after eating. Feels like she has a ball on her side that is going to burst, pressure type pain that radiates to her back. Taking naproxen and Tylenol for pain. She decreased her food intake for 1 week and she reports her pain improved. Denies any dysuria, abdominal pain, nausea, vomiting. Had been seen at [facility] for this several months ago and told was MSK in nature. CBC, CMP, lipase, UA normal except for hypernatremia. Never drinker. Believes she has name of the surgeon who performed cholecystectomy at home. RUQ US showed mild hepatomegaly (at least 19cm longitudinally), possible cirrhosis. Liver was highly echogenic and ultrasound was difficult to penetrate. Night time coughPatient reported chronic cough at night. No upper respiratory symptoms otherwise. She endorses some epigastric discomfort as well. Avoids eating for at least 3 hours prior to sleep. HypernatremiaPatient was instructed to drink more water after lab results showed Na 151. Previous Na have been normal. Patient has not increased her water intake. Varicose VeinsPatient also reports varicose veins in both lower extremities. Reports that they are painful and that one burst several months back. Patient is on her feet several hours a day due to her job. She eats carb-heavy diet and does not watch her salt intake. She does not do any formal exercise. Has been wearing compression stockings and raising legs without much benefit. Interested in vein specialist. PreventativeHas seen GI to set up colonoscopy - no, still needs to set up with Dr. Leavitt Tdap Booster - wants at next visit Alcira Walker MD Attn: [address] [place], [address], [facility] 06/22/2022 11:19:10 07/22/2022 text/html 57 yo F with a h x of obesity, back pain, HTN, varicose veins, hepatic steatosis present for a follow up on recent CT results.Pt filipino speaking, Jovi porter.Pt reports that she has not been compliant with her BP medication that was prescribed due to making her feel tired and not like her self. she reports that she has BP monitor at home that was given to her last visit. Denies any vision changes, chest pain, headache, palpitations.PT also reports chronic back pain, that is worse with standing. Reports mid lower back pain. Non radiating. Denies any numbness or tingling. No loss of urine. Denies any weakness. Reports improvement of back pain with leaning forward. Pt reports no family history of liver failure, denies any alcohol use in the past. Denies any other autoimmune disorders. Varicose Veins in both lower extremities. Last visit referral was made to vein specialist. Pt reprots that she wears compression socks daily. Pt reports that there was a burst several months ago and it was very painful. ROSEY CUNHA MD Attn: Accounting[address] [facility], [place], [address], [facility] 07/28/2022 09:41:34 08/05/2022 text/html pt is a 57 yo F w/ a h/o HTN, POPE, GERD, and obesity who presents for f/u on her BP. She states that she has been making a lot of lifestyle modifcations that were suggested to her. Eating well, staying away from fried/greesy foods, and limiting salt intake. She has been increasing her activity. She has been doing well otherwise. Tolerating her amlodipine well, no complaints for light headedness or abnormal ankle swelling. Denies [place], blurred vision, neck pain, fevers, fatigue, night sweats, CP, SOB, NVDC, and rashes. Bettye Calderón MD Attn: Accounting[address] [facility], [place], [address], [facility] 08/18/2022 12:39:35 09/07/2022 text/html Patient with PMH x of HTN, GERD, morbid obesity, hepatic steatosis, and varicose veins bilateral lower extremity presents today for screening colonoscopy. No prior colonoscopy. No FH of colon cancer. No FH of other cancers. Patient does not smoke or drink alcohol. Past surgical history includes x 4 and cholecystectomy DANIEL KINCAID [address], [place], [address], [facility] 09/07/2022 12:43:25 05/24/2023 text/html 57 year old fema le with a history of fatty liver with findings c/w cirrhosis on CT who presents for right mid back pain. Pain has been on/off for months. Dull in nature. Worsened with movement or if sleeping on her right side. Improves with Tylenol. No trauma. No heavy lifting or repetitive movements. Patient also concerned regarding signs of cirrhosis found on CT scan about 1 year prior. She reports she is trying lifestyle changes to lose weight including eating meals all at home and increasing number of vegetables she eats. She has not seen a call center assistant. Arianna Dewitt MD Attn: [address] [place], [address], [facility] 05/25/2023 11:13:13 OBGyn Episode No OBEpisode recorded.
[2024-03-31 16:05] VITALS: BP 137/68; PULSE 65; RESP 16; TEMP 36.6; O2SAT 98
--- OUTSIDE RECORDS SUMMARY | 2024-03-31 16:15 | XMS_ITS | CONTINUITY OF CARE DOCUMENT ---
Author Name simone nichols Address Unknown Organization [facility] Office Address [address] [place] [address] [address] [place] [address] Phone [phone] Care Team Providers Care Adjunct Communications Faculty Member Name Role Phone Pipe HOLLOWAY, Ulises Unavailable [phone] Aaron HOLLOWAY, Jovi Aguilera Unavailable INSURANCE PROVIDERS Payer name Policy type / Coverage type [place] [employer] HE[employer] AND FAMILY SERVICES Medicaid 3 [id number]
== END 2024-03-31 16:23 | disposition left against medical advice (07) ==
DX: M54.9 Dorsalgia, unspecified (principal)
CPT/HCPCS: 99199

== ENCOUNTER 2024-05-03 15:25 | Emergency (ER) | payer OTHER, SELFPAY ==
--- NOTE | ~2024-05-03 | XR_ITS ---
XR chest 2V Ordering provider: Washington Gibbons MD History: 58 years Female with . CP . Comparison: None. FINDINGS: MEDIASTINUM: The cardiac silhouette is slightly enlarged. LUNGS: No infiltrates, effusions or pneumothorax. OTHER: No free air under the diaphragm. Degenerative changes of the spine. IMPRESSION: No acute cardiopulmonary pathology. Reviewed, dictated and finalized at location A. PROVIDER RELATIONS
--- NOTE | ~2024-05-03 | CT_ITS ---
EXAMINATION: CT soft tissue neck w con DATE: 05/03/2024 17:18 INDICATION: Throat swelling. TECHNIQUE: Computed tomography (CT) of the neck was performed with 75 mL Omnipaque-350 intravenous co ntrast. Automated exposure control and iterative reconstruction technique were employed. The dose-elizabeth gth product was 531.86 mGy-cm. COMPARISON: None FINDINGS: There is anteroposterior elongation of the ocular globes. There are no pathologically enlar ged lymph nodes. The palatine tonsils are enlarged. No abscess. The major salivary glands are normal. There is mild mucosal thickening in the paranasal sinuses. The mastoid air cells are normal. There i s kyphosis of cervical spine. IMPRESSION: 1. Enlarged palatine tonsils, consistent with inflammation. No abscess. Reviewed, dictated and finalized at location A. RONMENTAL TECH
[2024-05-03 15:30] VITALS: BP 119/99; PULSE 64; RESP 16; TEMP 36.8; O2SAT 99
--- NOTE | 2024-05-03 15:30 | ECG_ITS ---
Test Date: 2024-05-03 15:41:10 Measurements Intervals [place] Rate: 94 P: 0 [place]: 0 QRS: 28 QRSD: 87 T: 26 QT: 352 QTc: 441 Interpretive Statements ATRIAL FIBRILLATION No previous ECG available for comparison Electronically Signed On 05-03-2024 15:52:43 AT [facility] by Darlene Sandoval M.D.
[2024-05-03 16:01] LABS: Basophils Absolute Auto 0.1 K/mm3 (0.0-0.1); Eosinophils Absolute Auto 0.3 K/mm3 (0-0.3); Eosinophils Percent Auto 4.2 % (0-4.4); Hematocrit 42.9 % (37.0-47.0); Hemoglobin 14.2 g/dL (12.0-15.0); Immature Granulocyte Absolute 0.02 K/mm3 (0.00-0.031); Immature Granulocyte Percent A 0.3 % (0-0.5); Lymphocytes Absolute Auto 2.25 K/mm3 (0.9-3.2); Lymphocytes Percent Auto 31.6 % (18.3-44.2); Mean Corpuscular HGB Conc 33.1 g/dl (32-36); Mean Corpuscular Hemoglobin 30.8 pg (26-34); Mean Corpuscular Volume 93.1 fl (80-100); Mean Platelet Volume 9.6 fl (7.4-10.4); Monocytes Absolute Auto 0.6 K/mm3 (0.1-0.6); Monocytes Percent Auto 7.7 % (2.6-8.5); Neutrophils Absolute Auto 3.9 K/mm3 (1.3-6.7); Neutrophils Percent Auto 55.2 % (45.5-73.1); Platelet Count Result 216 k/mm3 (150-375); Red Blood Count 4.61 M/mm3 (4.2-5.4); Red Cell Distribution Width 13.2 % (11.5-14.5); White Blood Count 7.1 K/mm3 (4.5-10.0)
[2024-05-03 16:12] LABS: Alanine Aminotransferase 18 U/L (6-35); Albumin Level 3.7 g/dL (3.5-5.1); Alkaline Phosphatase 99 U/L (38-126); Anion Gap 5 mmol/L (4-12); Aspartate Amino Transferase 21 U/L (14-36); Bilirubin,Total 0.5 mg/dL (0.2-1.3); Blood Urea Nitrogen 14 mg/dL (7-17); Calcium 8.7 mg/dL (8.4-10.2); Carbon Dioxide 29 mmol/L (22-30); Chloride 108 mmol/L (98-107); Estimated Glomerular Filt Rate > 60; Glucose 96 mg/dL (65-110); INR 0.9; Lipase 85 U/L (23-300); Potassium 4.1 mmol/L (3.4-5.0); Prothrombin Time 12.9 Seconds (11.1-14.7); Sodium 142 mmol/L (137-145)
[2024-05-03 16:13] LABS: Partial Thromboplastin Time 30.7 Seconds (22.3-36.8)
[2024-05-03 16:23] LABS: Troponin I < 0.012 ng/mL (0.000-0.034)
[2024-05-03 17:00] VITALS: BP 101/50; PULSE 107; RESP 16; O2SAT 97
--- OUTSIDE RECORDS SUMMARY | 2024-05-03 17:07 | XMS_ITS | CONTINUITY OF CARE DOCUMENT ---
Author Name simone nichols Address Unknown Organization [facility] Office Address [address] [place] [address] [address] [place] [address] Phone [phone] Care Team Providers Care Human Resources Benefits Assistant Name Role Phone Pipe HOLLOWAY, Ulises Unavailable Aaron HOLLOWAY, Jovi Aguilera Unavailable [phone] INSURANCE PROVIDERS Payer name Policy type / Coverage type [place] [employer] party ID HEALTHCARE AND FAMILY SERVICES Medicaid 3 [id number]
--- OUTSIDE RECORDS SUMMARY | 2024-05-03 17:07 | XMS_ITS | Patient Health Summary ---
Author Organization [facility] [employer] Address [address] [place] [address] Care Team Providers Care Graduate Student Instructor Name Role Phone Unavailable Primary Care Provider Unavailabl e Note from [facility] [employer] [facility],non-owned Affiliates and Associated Physician Practices is amultiple site organization consisting of ambulatory clinics and hospital sitesin [place], [place]. This disclosure is being madepursuant to the Care Everywhere program and may not contain all information available regarding this patient. 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
--- OUTSIDE RECORDS SUMMARY | 2024-05-03 17:07 | XMS_ITS | Data Portability ---
Author Organization [facility] Selvin Henning Address [address] [place] [address] Care Team Providers Care Replanting Machine Operator Name Role Phone JOVI HOLT Primary Care [...] Time Details Appointments None record ed. Lab CMP, serum or plasma 2023 024 [place] [facility], [address], [place], [address], 4 13:10:50 smooth muscle Ab, titer, IFA, serum 2022 023 [place] [facility], [address], [place], [address], 3 12:04:12 alpha- 1-anti trypsi n (aat), QN, serum 2022 023 [place] [facility], [address], [place], [address], 3 12:04:11 TSH, ultra- sensit fernando, serum 2022 023 [place] [facility], [address], [place], [address], 3 06:15:42 hepati tis panel (A+B+C ), acute, serum 2022 023 [place] [facility], [address], [place], [address], 3 06:15:41 CMP, serum or plasma 2022 023 [place] [facility], [address], [place], [address], 3 19:08:45 Referral gastro entero logist referr al [address], [address], [place], [address], 5 15:11:10 nutrit ionist /dieti miguelito referr al 2023 024 [facility] [employer] Nutrition Dietitian, [address] [facility], [place], [address], 5 14:16:48 physic al therap ist referr al 2022 023 [facility], [address] [facility], [place], [address], 3 12:52:41 vein specia list referr debi - Edward henning-zachary ruiz only. Failed conser vative measur es. 2022 023 young Betancur MD, [address] [facility], [address], [place], [address], 3 09:17:56 Procedures colono scopy proced ure (PROC) - Is patimarj t on blood thinne rs?: NPacem xenia or defibr illato r?: NPrep (Colon oscopy Proced ure): PEG 3350, Go Lytely , Colyte or Gavaly te G, depend ing on insura nce covera geIf patimarj t has had robertson ry / vascul ar stent, provid e date: NoIf patien t has had heart attack or stroke , provid e date: NoMckinleys patimarj t ever had proble ms with anesth esia or sedati on?: NoHas patien t had proble ms with openin g mouth or breath ing tubes? : NoDoes patimarj t use a wheelc hair?: N [facility] [address] [place], [address], 3 12:25:16 Surgeries None record ed. Imaging US, elasto gram 2023 024 [email or web address], [address] [place], [address], 4 14:26:38 US, abdome n 2022 023 [facility] (Rad), [address], [place], [address], 4 05:01:15 Medication Orders Zepbou nd 2.5 mg/0.5 mL subcut aneous pen inject or 2023 024 [place] [facility] #[id number], [address], [place], [place], [id number], 4 17:44:46 Dulcol ax (bisac odyl) 5 mg tablet ,delay ed releas e 2022 024 [place] [facility] #[id number], [address], [place], [place], [id number], 4 14:43:24 Mirala x 17 gram/d ose oral powder 2022 024 [place] [facility] #40359, [address], [place], [place], [id number], 4 14:43:54 amlodi pine 10 mg tablet 2022 023 [email or web address] [facility] #33542, [address], [id number], 4 14:42:42 Tyleno l Extra Streng th 500 mg tablet [email or web address] [facility] #04457, [address], [place], [id number], 3 10:29:22 famoti dine 20 mg tablet 2022 023 [facility] #26132, [address], [place], [id number], 3 10:29:16 losart an 25 mg tablet 2022 023 [email or web address] [facility] #35576, [address], [id number], 3 10:29:09 Patient TargetsNo targets recorded. Patient Instructions Encounter Date Encounter Id Patient Instructions Last Modified By Organization Details Last Modified Time 06/19/2022 [id number] Attending Physician Addendum I personally saw and examined the patient with the resident. I have reviewed the documentation and agree with the history, physical findings, work-up, and medical decision making as recorded. Alcira Walker MD [email or web address] Not available 06/22/2022 11:18:58 07/22/2022 [id number] A healthy lifestyle: care instructions [email or web address] Not [...] MD [email or web address] Not available 07/28/2022 09:41:30 08/05/2022 [id number] A healthy lifestyle: care instructions [email or web address] Not available 08/08/2022 13:24:15 On the date of this encounter, I saw and examined the patient, personally verifying the wu and critical findings in the resident s note. I reviewed and agree with the resident/fellow s findings and plan. MD Yumiko [email or web address] Not available 08/18/2022 12:39:27 09/07/2022 [id number] RL About Your Colonoscopy 1 Day Prep [email or web address] Not available 09/07/2022 11:59:32 05/24/2023 [id number] A healthy lifestyle: care instructions [email or web address] Not available 05/24/2023 15:02:56 I was present in the office and available during the visit. I discussed the patient s presentation, findings, assessment and plan with the resident during or immediately after the time of service. I agree with the resident s findings, assessment, and plan as documented in the note above. Asad Dewitt MD. [facility] Not available 05/25/2023 11:13:02 Reason for Referral Vein Specialist Referral for Varicose veins of lower extremity Mauritanian-speaking only. Failed conservative measures. Referring Physician: Jovi Walker, Billiard Parlor Manager, Encounter Date: 06/19/2022 Physical Therapist Referral for Right flank pain Referring Physician: Jovi Walker Billiard Parlor Manager, Encounter Date: 06/19/2022 Correspondence School Instructor Referral for Screening for malignant neoplasm of colon Referring Physician: Jovi Walker Billiard Parlor Manager, Encounter Date: 05/24/2023 Mosaic Technician/dietitian Refer ral for Morbid obesity Referring Physician: Jovi Walker, Billiard Parlor Manager, Encounter Date: 05/24/2023 Results Created Date Observation Date Name Description Value Unit Range Abnormal Flag Note LastModifiedBy Organization Detail LastModifiedTime 06/20/19 23 06/19/2022 COMP. METAB OLIC PANEL (14) glucose 94 mg/dL 65-99 ANION GP 11.0 mmol/ L N OSMOL 282.0 mOsM/ L N REFER ENCE RANGE : 275.0 -301. 0 Not Available [facility] Department [address] [place], [address], 06/19/2022 19:08:45 06/20/19 23 06/19/2022 COMP. METAB OLIC PANEL (14) BUN 10 mg/dL 8-26 Not Available [facility] Department [address] [place] [address], [address], 06/19/2022 19:08:45 06/20/19 23 06/19/2022 COMP. METAB OLIC PANEL (14) creatinine 0.41 mg/dL 0.50-1 .40 below low normal Not Available [facility] Department [address] [place], [address], 06/19/2022 19:08:45 06/20/19 23 06/19/2022 COMP. METAB OLIC PANEL (14) eGFR 116 mL/mi n/1.7 3 >=60 Not Available [facility] Department [address] [place], [address], 06/19/2022 19:08:45 06/20/19 23 06/19/2022 COMP. METAB OLIC PANEL (14) BUN/creatini ne ratio 23.7 Not Available [facility] Department [address] [place], [address], 06/19/2022 19:08:45 06/20/19 23 06/19/2022 COMP. METAB OLIC PANEL (14) sodium 142.0 mmol/ L 136.0- 144.0 Not Available [facility] Department [address] [place], [address], 06/19/2022 19:08:45 06/20/19 23 06/19/2022 COMP. METAB OLIC PANEL (14) potassium 4.0 mmol/ L 3.5-5. 3 Not Available [facility] Department [address] [place], [address], 06/19/2022 19:08:45 06/20/19 23 06/19/2022 COMP. METAB OLIC PANEL (14) chloride 106 mmol/ l 101-11 1 Not Available [facility] Department [address] [place], [address], 06/19/2022 19:08:45 06/20/19 23 06/19/2022 COMP. METAB OLIC PANEL (14) carbon dioxide, total 29.7 mmol/ L 21.0-3 2.0 Not Available [facility] Department [address] [place], [address], 06/19/2022 19:08:45 06/20/19 23 06/19/2022 COMP. METAB OLIC PANEL (14) calcium 8.9 mg/dL 8.2-10 .0 Not Available [facility] Department [address] [place], [address], 06/19/2022 19:08:45 06/20/19 23 06/19/2022 COMP. METAB OLIC PANEL (14) protein, total 7.1 g/dL 6.7-8. 2 Not Available [facility] Department [address] [place], [address], 06/19/2022 19:08:45 06/20/19 23 06/19/2022 COMP. METAB OLIC PANEL (14) albumin 4.1 g/dL 3.5-5. 5 Not Available [facility] Department [address] [place], [address], 06/19/2022 19:08:45 06/20/19 23 06/19/2022 COMP. METAB OLIC PANEL (14) globulin, total 3.0 g/dL 1.5-4. 5 Not Available [facility] Department [address] [place] [address], [address], 06/19/2022 19:08:45 06/20/19 23 06/19/2022 COMP. METAB OLIC PANEL (14) A/G ratio 1.4 Not Available [facility] Department [address] [place] [address], [address], 06/19/2022 19:08:45 06/20/19 23 06/19/2022 COMP. METAB OLIC PANEL (14) bilirubin, total 0.6 mg/dL 0.0-1. 2 Not Available [facility] Department [address] [place] [address], [address], 06/19/2022 19:08:45 06/20/19 23 06/19/2022 COMP. METAB OLIC PANEL (14) alkaline phosphatase 103.4 IU/L 42.0-1 21.0 Not Available [facility] Department [address] [place] [address], [address], 06/19/2022 19:08:45 06/20/19 23 06/19/2022 COMP. METAB OLIC PANEL (14) AST (SGOT) 14.3 U/L 10.0-4 2.0 Not Available [facility] Department [address] [place] [address], [address], 06/19/2022 19:08:45 06/20/19 23 06/19/2022 COMP. METAB OLIC PANEL (14) ALT (SGPT) 14.2 U/L 10.0-6 0.0 Not Available [facility] Department [address] [place], [address], 06/19/2022 19:08:45 06/20/19 23 06/20/2022 ACUTE HEPAT ITIS hep A Ab, IgM Negati ve negati ve Not Available [facility] ([facility] [place] [facility]) [address] [facility], [place], [address], 06/20/2022 06:15:41 06/20/19 23 06/20/2022 ACUTE HEPAT ITIS HBsAg screen Negati ve negati ve Not Available [facility] ([facility] [place] [place] [facility] [address] [place], [address], 06/20/2022 06:15:41 06/20/19 23 06/20/2022 ACUTE HEPAT ITIS hep B core Ab, IgM Negati ve negati ve Not Available [facility] ([facility] [place] [place] [facility] [address] [facility], [place], [address], 06/20/2022 06:15:41 06/20/19 23 06/20/2022 ACUTE HEPAT ITIS HCV Ab Non Reacti ve nonrea ctive Not Available [facility] ([facility] [place] [place] [facility] [address] [facility], [place], [address], 06/20/2022 06:15:41 06/20/19 23 06/20/2022 TSH RFX ON ABNOR MAL TO FREE T4 TSH 4.360 uIU/m L 0.450- 4.500 Not Available [facility] ([facility] [place] [place] [facility] [address] [facility], [place], [address], 06/20/2022 06:15:42 06/20/19 23 06/20/2022 INTER PRETA TION: interpretati on: Commen t Not infec chrystal with HCV unles s early or acute infec tion is suspe cted (whic h may be delay ed in an immun ocomp romis ed indiv idual ), or other evide nce exist s to indic ate HCV infec tion. Not Available [facility] ([facility] [place] [place] [facility] [address] [facility], [place], [address], 06/20/2022 06:15:41 05/24/19 24 05/25/2023 COMP. METAB OLIC PANEL (14) glucose 85 mg/dL 70-99 Not Available [facility] ([facility] [place] [place] [facility] [address] [facility] [place], [address], 05/25/2023 13:10:50 05/24/19 24 05/25/2023 COMP. METAB OLIC PANEL (14) BUN 11 mg/dL 6-24 Not Available [facility] ([facility] [place] [place] [facility] [address] [facility] [place], [address], 05/25/2023 13:10:50 05/24/19 24 05/25/2023 COMP. METAB OLIC PANEL (14) creatinine 0.44 mg/dL 0.57-1 .00 below low normal Not Available [facility] ([facility] [place] [place] [facility] [address] [facility] [place], [address], 05/25/2023 13:10:50 05/24/19 24 05/25/2023 COMP. METAB OLIC PANEL (14) eGFR 113 mL/mi n/1.7 3 >59 Not Available [facility] ([facility] [place] [place] [facility] [address] [facility] [place], [address], 05/25/2023 13:10:50 05/24/19 24 05/25/2023 COMP. METAB OLIC PANEL (14) BUN/creatini ne ratio 25 9-23 above high normal Not Available [facility] ([facility] [place] [place] [facility] [address] [place], [address], 05/25/2023 13:10:50 05/24/19 24 05/25/2023 COMP. METAB OLIC PANEL (14) sodium 142 mmol/ L 134-14 4 Not Available [facility] ([facility] [place] [place] [facility] [address] [place], [address], 05/25/2023 13:10:50 05/24/19 24 05/25/2023 COMP. METAB OLIC PANEL (14) potassium 4.1 mmol/ L 3.5-5. 2 Not Available [facility] ([facility] [place] [place] [facility] [address] [place], [address], 05/25/2023 13:10:50 05/24/19 24 05/25/2023 COMP. METAB OLIC PANEL (14) chloride 102 mmol/ L 96-106 Not Available [facility] ([facility] [place] [place] [facility] [address] [place], [place], [address], 05/25/2023 13:10:50 05/24/19 24 05/25/2023 COMP. METAB OLIC PANEL (14) carbon dioxide, total 28 mmol/ L 20-29 Not Available [facility] ([facility] [place] [place] [facility] [address] [place], [address], 05/25/2023 13:10:50 05/24/19 24 05/25/2023 COMP. METAB OLIC PANEL (14) calcium 8.4 mg/dL 8.7-10 .2 below low normal Not Available [facility] ([facility] [place] [place] [facility] [address] [place], [address], 05/25/2023 13:10:50 05/24/19 24 05/25/2023 COMP. METAB OLIC PANEL (14) protein, total 6.7 g/dL 6.0-8. 5 Not Available [facility] ([facility] [place] [place] [facility] [address] [place], [address], 05/25/2023 13:10:50 05/24/19 24 05/25/2023 COMP. METAB OLIC PANEL (14) albumin 4.3 g/dL 3.8-4. 9 Not Available [facility] ([facility] [place] [place] [facility] [address] [place], [address], 05/25/2023 13:10:50 05/24/19 24 05/25/2023 COMP. METAB OLIC PANEL (14) globulin, total 2.4 g/dL 1.5-4. 5 Not Available [facility] ([facility] [place] [place] [facility] [address] [place], [address], 05/25/2023 13:10:50 05/24/19 24 05/25/2023 COMP. METAB OLIC PANEL (14) A/G ratio 1.8 1.2-2. 2 Not Available [facility] ([facility] [place] [place] [facility] [address] [place], [address], 05/25/2023 13:10:50 05/24/19 24 05/25/2023 COMP. METAB OLIC PANEL (14) bilirubin, total 0.4 mg/dL 0.0-1. 2 Not Available [facility] ([facility] [place] [place] [facility] [address] [place], [address], 05/25/2023 13:10:50 05/24/19 24 05/25/2023 COMP. METAB OLIC PANEL (14) alkaline phosphatase 119 IU/L 44-121 Not Available [facility] [place] [place] [facility] [address] [place], [address], 05/25/2023 13:10:50 05/24/19 24 05/25/2023 COMP. METAB OLIC PANEL (14) AST (SGOT) 16 IU/L 0-40 Not Available [facility] ([facility] [place] [place] [facility] [address] [place], [address], 05/25/2023 13:10:50 05/24/19 24 05/25/2023 COMP. METAB OLIC PANEL (14) ALT (SGPT) 15 IU/L 0-32 Not Available [facility] ([facility] [place] [place] [facility] [address] [place], [address], 05/25/2023 13:10:50 05/24/19 23 04/22/2021 XR, knee No observ ation record ed. [email or web address] [facility] [address] [place], [address], 05/26/2022 11:34:49 05/24/19 23 10/28/2021 MAMMO , scree hamida, digit al, bilat eral No observ ation record ed. [email or web address] ([facility]) [address] [place], [address], 05/26/2022 11:34:49 06/12/19 23 06/11/2022 US, abdom en, compl ete No observ ation record ed. [address] [place], [address], 06/12/2022 11:04:42 07/18/19 23 07/17/2022 CT, abdom en, w/o contr ast No observ ation [facility]. [facility] [address] [place], [address], 07/23/2022 13:34:00 12/24/19 24 12/24/2023 imagi ng/di agnos tic resul t No observ ation record ed. [address] [place], [address], 12/28/2023 18:42:49 12/24/19 24 12/24/2023 imagi ng/di agnos tic resul t No observ ation record ed. [address] [place], [address], 12/28/2023 18:42:49 Result Notes None recorded. Problems Name Problem SNOMED Code Status Onset Date Resolution Date Notes Provider Name and Address Organization Details Recorded Time Pain of bilateral knee regions 5610477813016 02 Active 2021 Worse on right Dwayne Steele MD Attn: Lily pineda,[address] [facility], [place], [address], [place] [facility] 2 11:32:59 Morbid obesity 245106087 Active 2021 Mani Álvarez MD Attn: Lily pineda,[address] [facility], [place], [address], [place] [facility] 3 10:52:07 History of cholecystec elieser 488536904 Active 2021 Mani Álvarez MD Attn: Lily g,[address] [facility], [place], [address], [place] [facility] 3 10:52:45 Vitamin D deficiency 24204880 Active 2021 Dwayne Steele MD Attn: Accountleatha g,[address] [facility], [place], [address], [place] [facility] 2 06:17:20 Right flank pain 273705248 Active 2022 Jovi Walker MD Attn: Accountleatha g,[address] [facility], [place], [address], [place] [facility] 3 11:12:24 Sciatica 52159610 Active 2022 Jovi Walker MD Attn: Lily g,[address] [facility], [place], [address], [place] [facility] 3 11:12:26 Varicose veins of lower extremity 78478932 Active 2022 Mani Álvarez MD Attn: Lily pineda,[address] [facility], [place], [address], [place] [facility] 3 10:52:22 Steatosis of liver 146108439 Active 2022 Mani Álvarez MD Attn: Lily pineda,[address] [facility], [place], [address], [place] [facility] 3 10:52:11 Subclinical hypothyroid ism 09482756 Active 2022 Jovi Walker MD Attn: Lily pineda,[address] [facility], [place], [address], [place] [facility] 3 18:42:11 Gastroesoph ageal reflux disease 914431313 Active 2022 Mani Álvarez MD Attn: Lily g,[address] [facility], [place], [address], [place] 3 10:51:50 Essential hypertensio n 06912201 Active 2022 Mani Álvarez MD Attn: Lily pineda,[address], [place], [address], [facility] - [facility] 3 10:51:46 Problem Notes None recorded. Procedures Surgical History Date Name Laterality Status Provider Name and Address Organization Details Recorded Time 10/29/19 Most Recent Mammogram completed Margie Garcia RN [place] 10/29/2021 15:39:26 10/22/19 Date of Last Pap Smear completed Lashawn Bear [facility] 10/21/2021 15:34:47 cholecystectomy completed Daxa Paula MA [place] - [place] 04/17/2021 10:38:54 delivery completed Lashawn Bear [facility] 10/21/2021 15:36:31 Imaging Results Imaging Date Name Status LastModified by Organiz ation Details LastModified Time 04/22/2021 XR, knee completed [address] [place], [address], 05/26/2022 11:34:49 10/28/2021 MAMMO, screening, digital, bilateral completed [address] ([facility]) [address] [place], [address], 05/26/2022 11:34:49 06/11/2022 US, abdomen, complete completed [address] [place], [address], 06/12/2022 11:04:42 07/17/2022 CT, abdomen, w/o contrast [email or web address] [address] [place], [address], 07/23/2022 13:34:00 12/24/2023 imaging/diagno stic result active [email or web address] [place] [address] [address] [place], [address], 12/28/2023 18:42:49 12/24/2023 imaging/diagno stic result active [email or web address] [facility] [address] [place], [address], 12/28/2023 18:42:49 Procedure Notes None recorded. Medical Equipment None Reported. Allergies Allergen ID Allergen Name Allergen Category Reaction Reaction Severity Criticality Documentation Date Start Date Code Code System Note Provider Name and Address Organization Details Recorded Time 178683 Advil medicatio n facial swelling Not available Not available 04/17/2021 64378 0 RxNorm Not Available Not Available Not [...] Avai lable Vitals Date Recorded Body height Body mass index (BMI) Body weight Heart rate Body temperature Respiratory rate Oxygen saturation Oxygen saturation in Arterial blood by Pulse oximetry Systolic blood pressure Diastolic blood pressure Provider Name and Address Organization Details Last Updated DateTime 3 157.48 cm 42.5 kg/m2 171721. 83 g 61 /min 97.6 [degF] 16 /min 96 % 96 % 148 mm[Hg] 88 mm[Hg] Cassy Hayden LPN [facility] 3 09:41:13 Date Recorded Body height Body mass index (BMI) Body weight Heart rate Body temperature Respiratory rate Systolic blood pressure Diastolic blood pressure Provider Name and Address Organization Details Last Updated DateTime 3 157.48 cm 42.3 kg/m2 259987. 29 g 53 /min 98 [degF] 16 /min 152 mm[Hg] 96 mm[Hg] Kerry Rincon MA [facility] 3 11:02:13 Date Recorded Body height Body mass index (BMI) Body weight Body temperature Respiratory rate Heart rate Oxygen saturation Oxygen saturation in Arterial blood by Pulse oximetry Systolic blood pressure Diastolic blood pressure Provider Name and Address Organization Details Last Updated DateTime 3 157.48 cm 42 kg/m2 268594. 45 g 97.8 [degF] 16 /min 65 /min 98 % 98 % 134 mm[Hg] 81 mm[Hg] Lashawn Bear [facility] 3 10:27:54 Date Recorded Body height Body mass index (BMI) Body weight Heart rate Body temperature Systolic blood pressure Diastolic blood pressure Provider Name and Address Organization Details Last Updated DateTime 3 157.48 cm 41.5 kg/m2 045832. 39 g 57 /min 97.1 [degF] 145 mm[Hg] 81 mm[Hg] Shreya Cramer [facility] 3 11:46:50 Date Recorded Body height Body mass index (BMI) Body weight Heart rate Body temperature Respiratory rate Oxygen saturation Oxygen saturation in Arterial blood by Pulse oximetry Systolic blood pressure Diastolic blood pressure Provider Name and Address Organization Details Last Updated DateTime 4 157.48 cm 42.5 kg/m2 321762. 23 g 60 /min 97.8 [degF] 18 /min 98 % 98 % 120 mm[Hg] 75 mm[Hg] Esha Rod MA [facility] - [facility] 4 14:42:17 Social History Question Answer Notes LastModified by Purdy Aveat ion Details LastModified Time Tobacco Smoking Status Never Smoker Daxa Paula MA null, [place] 04/17/2021 10:39:06 What Is Your Level Of Alcohol Consumption? None [email or web address] Information not available 10/21/2021 In The 14 Days Before Symptom Onset, Have You Had Close Contact With A Laboratory-confirm ed COVID-19 While That Case Was Ill? No Information n ot available 10/21/2021 In The 14 Days Before Symptom Onset, Have You Had Close Contact With A Person Who Is Under Investigation For COVID-19 While That Person Was Ill? No [email or web address] Information not available 10/21/2021 Have You Been To An Area Known To Be High Risk For COVID-19? No [email or web address] Information not available 10/21/2021 Are You Currently Employed? 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 05/24/2023 [email or web address] Information not available 05/24/2023 Are You Sexually Active? No [email or web address] Information not available 10/21/2021 Do You Have Smoke And Carbon Monoxide Detectors In Your Home? Yes [email or web address] Information not available 10/21/2021 Are You Passively Exposed To Smoke? No [email or web address] Information no t available 10/21/2021 Do You Use Any Illicit Or Recreational Drugs? No [email or web address] Information not available 10/21/2021 Do You Or Have You Ever Used Any Other Forms Of Tobacco Or Nicotine? No [email or web address] Information not available 10/21/2021 Sex: Female Functional [...] Response Coronary Artery Disease N Other N Atrial Fibrillation N High Blood Pressure Y Kidney or Bladder Problems N Thyroid Problems N GI Problems N Depression N COPD N Blood Clots N Skin Problems N Anemia N Heart Attack ([place]) N Anxiety Disorder N Diabetes N Muscle, Joint, or Bone Problems N Seizures/Epilepsy N Acid Reflux (GERD) N Cancer N Stroke N Asthma N Allergies N High Cholesterol N Hepatitis N Liver Disease N Headaches N Osteoporosis N Heart Failure N Gynecological History Statement/Question Response If Post [...] Immunizations Vaccine Type Date Status Note Provider Nam e and Address Organization Details Recorded Time COVID-19, mRNA, LNP-S, PF, 30 mcg/0.3 mL dose 11/03/2020 completed Jovi Walker MD Attn: Accounting[address] [place], [address], [facility] 05/01/2022 18:12:28 COVID-19, mRNA, LNP-S, PF, 30 mcg/0.3 mL dose 01/21/2021 completed Jovi Walker MD Attn: Accounting[address] [place], [address], [place] [facility] 05/01/2022 18:12:28 Past Encounters Encounter ID Performer Location Encounter Start Date Encounter Closed Date Diagnosis/Indication Diagnosis SNOMED-CT Code Diagnosis ICD10 Code Diagnosis Note [id number] Dwayne Steele MD [facility] (Adult Med) [address] [place] [address] 04/17/2021 10:15:46 04/18/2021 08:25:16 Pain of bilateral knee regions 5939549909 61371 M25.561 M25.562 Abnormal weight gain 161 812001 R63.5 Morbid obesity 914557531 E66.01 [id number] SHARON FontaineP- Koko 14 OB [address] [facility] [place] [address] 10/21/2021 15:13:28 10/22/2021 07:39:52 Gynecologic examination 03703866 Z01.419 1. Counseled regarding prevention of STD's [...] or sooner if needed. Screening mammography 24 579893 Z12.31 Importance of yearly mammograms and sbe exam discussed with pt. Mammogram order given, pt verbalized understand ing. Vaginal discharge 972688 006 N89.8 Nuswab done and sent to lab. Counseled on STD prevention and condom use. Counseled on yeast and BV prevention . Will follow up pending lab results. Uterine prolapse 3665318 5 N81.4 Will refer to urogyn for consult. Pt v/u. [id number] MD Koko Galindo 14 IM [address] [facility] [place] [address] 05/01/2022 09:00:48 05/04/2022 10:45:34 Morbid obesity 724555916 E66.01 Discussed diet at length including healthier [...] will check with Roman)TS H, cholestero l vbumrSlV4p prediabeti c Adult heal th examination 956216870 Z00.00 Last blood work over 1 year priorTDaP and COVID booster at next visit Right flank pain 0370024 09 R10.9 Hx of cholecyste ctomyNo dysuria, abdominal pain, nausea, vomiting so less likely kidney stone or pancreatit isMay consider imaging if pain worsens and all labs are normalLipa se ordered. UA ordered. Sciatica 20162511 M54.31 Patient would benefit from weight loss and PTPatient will try to find out the location/# of the PT she had been seeing for her knee painPatien t likely had bad reaction to gabapentin but unsureWill ask for medical records to verify which 'nerve pain' med caused her extreme drowsiness Varicose v eins of lower extremity 24372363 I83.893 Instructed patient to wear compressio n stockingsD ecrease salt in diet (DASH diet)Weigh t lossInstru cted patient to keep legs elevated on 3 pillows when laying downTake breaks when possible if standing all day at workWear compressio n stockingsS clerothera py if has continued pain unrelieved by conservati ve measures Elevated blood-pressure reading without diagnosis of hypertension 570787705 R03.0 BP 150/100No prior Hx of HTNDASH dietExerci seRTC in 2-3 weeks Screening for malignant neoplasm of colon 236261903 Z12.11 Never had colonoscop y [id number] Alcira Walker MD [place] 14 IM [address] [facility] [address] [place] [address] 06/19/2022 09:25:11 06/22/2022 15:47:20 Right flank pain 133084415 R10.9 Hx of cholecyste ctomySympt oms sound [...] ferral to PT made Steatosis of liver 32528 1007 K76.0 Recent abdominal US with hepatomega ly, steatosis, cirrhotic changesUlt rasound unable to penetrate liver due to echogenici tyHepatiti s panel orderedLik woody POPE Varicose v eins of lower extremity 76367556 I83.893 Instructed patient to wear compressio n [...] providing minimal improvemen t Subclinica l hypothyroidism 37654586 E02 TSH 4.8 with normal T4 in recheck today Gastroesop hageal reflux disease 103323863 K21.9 Night time cough likely GERD based on symptomsPo ssible underlying ALLI as wellWill start with famotidine 20mg BID Hypernatremia 988327814 E87.0 Last Na 151 - will recheck - no previous elevated Na per chart reviewBloo dwork came back same day and Na 142.Hypern atremia resolved. Essential hypertension 74541507 I10 BP 148/88.Can now officially dx with HTN as 2+ readings of elevated BPBP cuff given to patient from clinic - she is medicaidTa ke BP readings twice daily and log, bring in at next visitStart Losartan 25mg daily (avoiding lisinopril as may worsen cough)RTC in 1 month [id number] ROSEY CUNHA MD [place] 14 IM 4 [facility] [address] [place] [address] 07/22/2022 10:49:03 07/31/2022 10:10:52 Morbid obesity 691658646 E66.01 healthy lifestyle encouraged including regular exercise of at least 150min per week, diet rich in plant based foods and low in added sugars, processed carbohydra osiris, and high salt foods. Essential hypertension 02171347 I10 pt reports non compliance with losartan, due to feeling tired.Will change medication to amlodipine 10mgpt to keep a log of Bp for the next 2 weeks and return to the office Varicose v eins of lower extremity 64846842 I83.893 Instructed patient to continue to wear compressio n stockingsk eep legs elevated when laying downpt has been given a vein specialist referral but has not been seen yet Hernia of anterior abdominal wall 521114965 K43.[address] abdomen on 07/17/2022 that was suggestive of ventral herniaThe hernia measured to be 5.4 by 3 cm located midlineCur rently not obstructiv e and pt with out any issues at this time didn't want to be evaluated by surgery Spinal kenji nosis of lumbar region 10310730 M48.061 pt reports chronic midline back pain [...] with tylenol as needed Cirrhosis - non-alcoholic 122581731 K74.[address] abdomen on 07/17/2022: mild decrease in the liver volume. Mild nodular marginatio n of the right hepatic lobe.PT has had a hepatits panel done on 3 and it was unremarkab leNo alcohol use disorder, will rule out autoimmune hepatits by ordering the antibodies and will also order alpha antitrypsi n--> if both are negative most commonly due to POPE [id number] MD Koko Galindo 14 IM [address] [facility] [address] [place] [address] 08/05/2022 10:18:01 08/10/2022 16:52:57 Steatosis of liver 717008727 K76.0 discussed lifestyle modificati ons to reduce damage to liver. No tylenol use explained. Right flank pain 3932167 09 R10.9 muscular in origin. Nothing to do right now. ibuprofen discussed w/ pt and exercises. Essential hypertension 08652753 I10 blood pressure well controlled today. No s/s of hypotensio n reported by pt. Appears to be doing well on current medication .- continue amlodipine 10mg daily Morbid obesity 090933890 E66.01 BMI: 42 - Discussed lifestyle modificati [...] such as DM, HLD, and cancer risk [id number] DANIEL KINCAID [facility] [address] [place] [address] 09/07/2022 10:49:42 09/14/2022 09:13:24 Screening for malignant neoplasm of colon 001283025 Z12.11 First colonoscop y. No FH of colon cancer.CBC 05/02/31 and CMP 06/19/22 in chart Right uppe r quadrant pain 864550140 R10.11 [id number] MD Koko Hong 14 IM [address] [facility] [address] [place] [address] 05/24/2023 14:13:11 05/26/2023 10:44:58 Morbid obesity 743159396 E66.01 Discussed diet at length including healthier food options, increase vegetable and fiber intake, reduce salt intake, incorporat e yoga/stret danette practices and exercise 30 min 5 x per week to improve cardiovasc ular health. - stressed weight loss - talked about GLP-1 Jeovany - Zepbound prescribed (no personal hx of DMII)- nutritioni st referral sent- RTC in 4 weeks Steatosis of liver 1007 K76.0 Likely POPE that is progressin g [...] ordered Screening for malignant neoplasm of colon 267211427 Z12.11 No hx of any prior colonoscop ies Backache 270517123 M54.9 Right mid back. Due to worsening [...] Bennett Member ID Guarantor Name 06/19/2022 1 [facility] (MEDICAID REPLACEMENT - HMO) [id number] Promise Cramerzo [id number] 16 Promise Sarkis 07/22/2022 1 [facility] (MEDICAID REPLACEMENT - HMO) [id number] Promise Cramerzo [id number] 16 Promise Sarkis 08/05/2022 1 [facility] (MEDICAID REPLACEMENT - HMO) [id number] Promise Cramerzo [id number] 16 Promise Sarkis 09/07/2022 1 [facility] (MEDICAID REPLACEMENT - HMO) [id number] Promise Cramerzo [id number] 16 Promise Sarkis Notes Date Note Type [...] pain, nausea, vomiting. Had been seen at [place] [facility] for this several months ago and [...] visit Alcira Walker MD Attn: Accounting,[address] [facility], [place], [address], [facility] 06/22/2022 11:19:10 07/22/2022 text/html 57 yo F with a h x of obesity, back pain, HTN, varicose veins, hepatic steatosis present for a follow up on recent CT results.Pt swedish speaking, Jovi porter.Pt reports that she has [...] CUNHA MD Attn: Accounting,[address] [facility], [place], [address], [facility] 07/28/2022 09:41:34 08/05/2022 text/html pt is a [...] Calderón MD Attn: Accounting,[address] [facility], [place], [address], [facility] 08/18/2022 12:39:35 09/07/2022 text/html Patient with PMH x of HTN, GERD, morbid obesity, hepatic steatosis, and varicose veins bilateral lower extremity presents today for screening colonoscopy. No prior colonoscopy. No FH of colon cancer. No FH of other cancers. Patient does not smoke or drink alcohol. Past surgical history includes x 4 and cholecystectomy DANIEL KINCAID [address] [place], [address], [facility] 09/07/2022 12:43:25 05/24/2023 text/html 57 year old fema nay with a history of fatty liver with [...] she eats. She has not seen a applications developer. Arianna Dewitt MD Attn: Accounting,[address] [facility], [place], [address], [facility] 05/25/2023 11:13:13 OBGyn Episode No OBEpisode recorded.
--- OUTSIDE RECORDS SUMMARY | 2024-05-03 17:07 | XMS_ITS | Referral Summary ---
Author Organization [facility] Address [address] [place] [address] Care Team Providers Care Stitcher Set Up Operator Automatic Name Role Phone Unavailable Primary Care Provider Unavailabl e Source Comments [facility],non-owned Affiliates and Associated Physician Practices is amultiple site organization consisting of ambulatory clinics and hospital sitesin [place], [place]. This disclosure is being madepursuant to the Care Everywhere program and may not contain all information available regarding this patient. Last updated 17.[facility] [employer] Allergies No known active allergies Medications Be [...] Comments Blood Pressure 147/86 04/16/2022 12:20 PM CERTIFIED HEALTH EDUCATION SPECIALIST Pulse 58 04/16/2022 12:20 PM CERTIFIED HEALTH EDUCATION SPECIALIST Temperature - - Respiratory Rate - - Oxygen Saturation - - Inhaled Oxygen Concentration - - Weight 107.5 kg (237 lb) 04/16/2022 12:15 PM CERTIFIED HEALTH EDUCATION SPECIALIST Height - - Body Mass Index - - Plan of Treatment Not on file
--- OUTSIDE RECORDS SUMMARY | 2024-05-03 17:07 | XMS_ITS | Clinical Summary ---
Author Organization [facility] [employer] Address [address] [place] [address] Care Team Providers Care Tub Washer Name Role Phone Unavailable Primary Care Provider Unavailabl e Source Comments [facility],non-owned Affiliates and Associated Physician Practices is amultiple site organization consisting of ambulatory clinics and hospital sitesin [place], [place]. This disclosure is being madepursuant to the Care Everywhere program and may not contain all information available regarding this patient. Last updated 17.[facility] Allergies No known active allergies Medications Be [...] Comments Blood Pressure 147/86 04/16/2022 12:20 PM TESTING SPECIALIST Pulse 58 04/16/2022 12:20 PM TESTING SPECIALIST Temperature - - Respiratory Rate - - Oxygen Saturation - - Inhaled Oxygen Concentration - - Weight 107.5 kg (237 lb) 04/16/2022 12:15 PM TESTING SPECIALIST Height - - Body Mass Index [...]
--- NOTE | 2024-05-03 17:18 | ED_ITS ---
HPI - General Adult General Chief complaint: Chest Pain Stated complaint: Chest pain, throat tightness, dizzy Time Seen by Provider: 05/03/24 15:40 History of Present Illness HPI narrative: [age] year old female present to the emergency department for evaluation for throat tightness that occurred at 4:00 a.m.. Patient states that she woke up about 4:00 a.m. was having some tightness of her throat. Patient felt she is also having some rapid heart rate at that time. Patient does take metoprolol for underlying atrial fibrillation. Patient denies any difficulty breathing or swallowing. Patient reports symptoms have since improved. Patient does describe possible sleep apnea but denies any prior history of gastric reflux Related Data Allergies Allergy/AdvReac Type Severity Reaction Status Date / Time No Known Allergies Allergy Verified 05/03/24 15:26 Review of Systems 2 Review of Systems: All systems reviewed & are unremarkable except as noted in HPI and below PMFSH Surgical History Surgical History Hx laparoscopic cholecystectomy Previous section Family History Family History Father Acute myocardial infarction Daughter Asthma Social History Social History Smoking status: Never smoker Alcohol intake: never Living arrangements: with family Spiritual care concerns: No Exam 2 Narrative: APPEARANCE: Well appearing, no pain, no distress, well-nourished. HEAD: normocephalic, atraumatic. EYES: PERRLA/EOMI, conjunctivae clear. NOSE: Normal no drainage EARS:TMS clear with good light reflex. THROAT: Pharynx clear, no exudate. NECK: Supple. No adenopathy, no masses. RESPIRATORY: Airway patent, respirations nonlabored. Clear to auscultation bilaterally, no rales, rhonchi, wheezing. CARDIOVASCULAR: Regular rate and rhythm without murmurs rubs or gallops. ABDOMINAL: Soft, nontender, nondistended, normal bowel sounds MUSCULOSKELETAL: Moves all extremities. Strength/ROM intact, No edema, No calf tenderness. NEURO: Alert. Cranial nerves II through XII intact. Good gait. Good coordination SKIN: Warm, dry. Normal Color Course Vital Signs Vital signs: Vital Signs Temperature 98.3 F 05/03/24 15:30 Pulse Rate 64 05/03/24 15:30 Respiratory Rate 16 05/03/24 15:30 Blood Pressure 119/99 H 05/03/24 15:30 Pulse Oximetry 99 05/03/24 15:30 Oxygen Delivery Room Air 05/03/24 15:30 Temperature 98.3 F 05/03/24 15:30 Pulse Rate 74 05/03/24 17:58 Respiratory Rate 16 05/03/24 17:58 Blood Pressure 113/98 H 05/03/24 17:58 Pulse Oximetry 98 05/03/24 17:58 Oxygen Delivery Room Air 05/03/24 16:39 Medical Decision Making MDM Narrative Medical decision making narrative: 58-year-old female presented emergency department for evaluation for rapid heart rate. Patient is and rate controlled AFib and patient does take metoprolol for this. Patient states he does not have a primary care physician and does not have a dispatcher service that she follows up with. Patient denies any chest pain or shortness of breath but patient does complain of some throat tightness. CT scan did show evidence of some enlarged tonsils but no evidence of abscess. Patient does describe sleep apnea and this may be the underlying cause of her enlarged tonsil eyes and complaint of throat swelling. No evidence strep pharyngitis. Patient is afebrile with no leukocytosis and a stable hemoglobin of 14.2. Troponin was negative. Patient was encouraged close follow-up with her primary care physician, Cardiology and ultimately that she would need a sleep study by her primary care physician. All questions concerns were addressed patient was well-appearing at time of discharge. Differential Diagnosis Differential Diagnosis: Impressions Chest X-Ray 05/03/24 16:06 IMPRESSION: No acute cardiopulmonary pathology. Soft Tissue Neck CT 05/03/24 17:27 IMPRESSION: 1. Enlarged palatine tonsils, consistent with inflammation. No abscess. Vital Signs Vital Signs: Vital Signs Temperature 98.3 F 05/03/24 15:30 Pulse Rate 64 05/03/24 15:30 Respiratory Rate 16 05/03/24 15:30 Blood Pressure 119/99 H 05/03/24 15:30 Pulse Oximetry 99 05/03/24 15:30 Oxygen Delivery Room Air 05/03/24 15:30 Temperature 98.3 F 05/03/24 15:30 Pulse Rate 74 05/03/24 17:58 Respiratory Rate 16 05/03/24 17:58 Blood Pressure 113/98 H 05/03/24 17:58 Pulse Oximetry 98 05/03/24 17:58 Oxygen Delivery Room Air 05/03/24 16:39 Lab Data Lab results reviewed: Yes I reviewed the patient's lab results. 05/03/24 15:52 05/03/24 15:52 Labs: Lab Results 05/03/24 Range/Units 15:52 WBC 7.1 (4.5-10.0) K/mm3 RBC 4.61 (4.2-5.4) M/mm3 Hgb 14.2 (12.0-15.0) g/dL Hct 42.9 (37.0-47.0) % MCV 93.1 (80-100) fl MCH 30.8 (26-34) pg MCHC 33.1 (32-36) g/dl RDW 13.2 (11.5-14.5) % Plt Count 216 (150-375) k/mm3 MPV 9.6 (7.4-10.4) fl Immature Gran % (Auto) 0.3 (0-0.5) % Neut % (Auto) 55.2 (45.5-73.1) % Lymph % (Auto) 31.6 (18.3-44.2) % Saunders % (Auto) 7.7 (2.6-8.5) % Eos % (Auto) 4.2 (0-4.4) % Baso % (Auto) 1.0 (0.2-1.2) % Lymph # (Auto) 2.25 (0.9-3.2) K/mm3 Saunders # (Auto) 0.6 (0.1-0.6) K/mm3 Eos # (Auto) 0.3 (0-0.3) K/mm3 Baso # (Auto) 0.1 (0.0-0.1) K/mm3 Abs Immat Gran (auto) 0.02 (0.00-0.031) K/mm3 Absolute Neuts (auto) 3.9 (1.3-6.7) K/mm3 Absolute Nucleated RBC 0.000 (0.0-0.012) K/mm3 Nucleated RBC % 0.0 (0.0-0.2) % PT 12.9 (11.1-14.7) Seconds INR 0.9 APTT 30.7 (22.3-36.8) Seconds Sodium 142 (137-145) mmol/L Potassium 4.1 (3.4-5.0) mmol/L Chloride 108 H (98-107) mmol/L Carbon Dioxide 29 (22-30) mmol/L Anion Gap 5 (4-12) mmol/L BUN 14 D (7-17) mg/dL Creatinine 0.46 L (0.7-1.0) mg/dL Estim Creat Clear Calc Not Reportable Estimated GFR > 60 (59 - ) Glucose 96 (65-110) mg/dL Calcium 8.7 (8.4-10.2) mg/dL Total Bilirubin 0.5 (0.2-1.3) mg/dL AST 21 (14-36) U/L ALT 18 (6-35) U/L Alkaline Phosphatase 99 (38-126) U/L Troponin I < 0.012 (0.000-0.034) ng/mL Total Protein 7.0 (6.3-8.2) g/dL Albumin 3.7 (3.5-5.1) g/dL Lipase 85 (23-300) U/L Imaging Data Radiologist's impression: Impressions Chest X-Ray 05/03/24 16:06 IMPRESSION: No acute cardiopulmonary pathology. Soft Tissue Neck CT 05/03/24 17:27 IMPRESSION: 1. Enlarged palatine tonsils, consistent with inflammation. No abscess. Discharge Plan Discharge Clinical Impression: Throat tightness, Atrial fibrillation, Enlarged tonsils Patient Disposition: Home, Self-Care Condition: Stable Instructions: Antibiotic Form Additional Instructions: Have close follow-up with a primary care physician. Should also have close follow-up with Cardiology. If you have any worsening symptoms then please call or return to the emergency department. Your primary care physician may wish to set you up with a sleep study. Patient Language: German Prescriptions: No Action acetaminophen 500 mg tablet 1,000 mg PO TID PRN (Reason: coral) 7 Days Qty: 42 0RF sucralfate [Carafate] 1 gram tablet 1 g PO TID Qty: 90 0RF famotidine [Pepcid] 20 mg tablet 20 mg PO BID 42 Days Qty: 84 0RF Follow-up/Referrals: Darlene Sandoval MD [Physician] - Seb Amos MD [Physician] - UNKNOWN,DOCTOR [Primary Care Provider] -
[2024-05-03 17:25] VITALS: BP 120/92; PULSE 98; RESP 16; O2SAT 96
--- OUTSIDE RECORDS SUMMARY | 2024-05-03 17:34 | XMS_ITS | Referral Summary ---
Author Organization [facility] Address [address] [place] [address] Care Team Providers Care Supervisor Last Model Department Name Role Phone Unavailable Primary Care Provider Unavailabl e Source Comments [facility],non-owned Affiliates and Associated Physician Practices is amultiple site organization consisting of ambulatory clinics and hospital sitesin [place], [place], [place] and [place]. This disclosure is being madepursuant to the Care Everywhere program and may not contain all information available regarding this patient. Last updated 17.[facility] [employer] Allergies No known active allergies Medications Be [...] Comments Blood Pressure 147/86 04/16/2022 12:20 PM JINRIKSHA DRIVER Pulse 58 04/16/2022 12:20 PM JINRIKSHA DRIVER Temperature - - Respiratory Rate - - Oxygen Saturation - - Inhaled Oxygen Concentration - - Weight 107.5 kg (237 lb) 04/16/2022 12:15 PM JINRIKSHA DRIVER Height - - Body Mass Index - - Plan of Treatment Not on file
--- OUTSIDE RECORDS SUMMARY | 2024-05-03 17:34 | XMS_ITS | CONTINUITY OF CARE DOCUMENT ---
Author Name simone nichols Address Unknown Organization [facility] Address [address] [place] [address] [address] [place] [address] Phone [phone] Care Team Providers Care Wind Operations Supervisor Name Role Phone Pipe HOLLOWAY, Ulises Unavailable Aaron HOLLOWAY, Jovi Aguilera Unavailable INSURANCE PROVIDERS Payer name Policy type / Coverage type [place] red democrat [employer] Medicaid 3 [id number]
--- OUTSIDE RECORDS SUMMARY | 2024-05-03 17:34 | XMS_ITS | Patient Health Summary ---
Author Organization [facility] [employer] Address [address] [facility] [address] [place] [address] Care Team Providers Care High School Guidance Counselor Name Role Phone Unavailable Primary Care Provider Unavailabl e Note from [facility] [employer] [facility],non-owned Affiliates and Associated Physician Practices is amultiple site organization consisting of ambulatory clinics and hospital sitesin [place], [place], [place] and [place]. This disclosure is being madepursuant to the Care Everywhere program and may not contain all information available regarding this patient. Last updated 17.[facility] [employer] Allergies No known active allergies Medications Be [...] Comments Blood Pressure 147/86 04/16/2022 12:20 PM RESORT HOST Pulse 58 04/16/2022 12:20 PM RESORT HOST Temperature - - Respiratory Rate - - Oxygen Saturation - - Inhaled Oxygen Concentration - - Weight 107.5 kg (237 lb) 04/16/2022 12:15 PM RESORT HOST Height - - Body Mass Index - -
--- OUTSIDE RECORDS SUMMARY | 2024-05-03 17:34 | XMS_ITS | Clinical Summary ---
Author Organization [facility] Address [address] [facility] [place] [address] Care Team Providers Care Economic Adviser Name Role Phone Unavailable Primary Care Provider Unavailabl e Source Comments [facility],non-owned Affiliates and Associated Physician Practices is amultiple site organization consisting of ambulatory clinics and hospital sitesin [place], [place], [place] and [place]. This disclosure is being madepursuant to the Care Everywhere program and may not contain all information available regarding this patient. Last updated 17.[facility] Allergies No known active allergies Medications Be [...] Comments Blood Pressure 147/86 04/16/2022 12:20 PM UX MANAGER Pulse 58 04/16/2022 12:20 PM UX MANAGER Temperature - - Respiratory Rate - - Oxygen Saturation - - Inhaled Oxygen Concentration - - Weight 107.5 kg (237 lb) 04/16/2022 12:15 PM UX MANAGER Height - - Body Mass Index [...]
[2024-05-03 17:36] VITALS: BP 113/98; PULSE 74; RESP 16; O2SAT 98
[2024-05-03 17:58] VITALS: BP 113/98; PULSE 74; RESP 16; O2SAT 98
== END 2024-05-03 17:59 | disposition home or self-care (01) ==
PROVIDERS: Emergency Provider Emergency Medicine
DX: I48.91 Unspecified atrial fibrillation (principal); J35.1 Hypertrophy of tonsils; R07.0 Pain in throat; Z90.49 Acquired absence of other specified parts of digestive tract; Z79.899 Other long term (current) drug therapy
CPT/HCPCS: 36415; 70491; 71046; 80053; 83690; 84484; 85025; 85610; 85730; 93005; 99284; Q9967

== ENCOUNTER 2024-11-20 21:42 | Emergency (ER) | payer OTHER, SELFPAY ==
[2024-11-20 21:45] VITALS: PULSE 61; RESP 18; TEMP 36.6; O2SAT 99
[2024-11-20 22:38] VITALS: BP 143/88; PULSE 62; RESP 18; O2SAT 97
--- NOTE | 2024-11-20 23:03 | ECG_ITS ---
Test Date: 2024-11-20 23:21:28 Measurements Intervals Gordon Rate: 59 P: 28 [place]: 158 QRS: 34 QRSD: 90 T: 40 QT: 444 QTc: 441 Interpretive Statements SINUS BRADYCARDIA POSSIBLE LEFT ATRIAL ENLARGEMENT [-0.1mV P WAVE IN V1/V2] LOW QRS VOLTAGE IN PRECORDIAL LEADS [QRS DEFLECTION < 1.0 mV IN CHEST LEADS] CANNOT EXCLUDE PREVIOUS SEPTAL INFARCTION OTHERWISE WITHIN NORMAL LIMITS Compared to ECG 05/03/2024 15:41:10 ALTER LEAD POSITION V2 OTHERWISE NO CHANGE Electronically Signed On 11-21-2024 12:23:54 CDT by Frank Shearer M.D.
--- NOTE | 2024-11-20 23:39 | ED_ITS ---
HPI - General Adult General Chief complaint: Unspecified Stated complaint: Wants second opinion about prescribed medication Time Seen by Provider: 11/20/24 23:02 History of Present Illness HPI narrative: Patient was at OSH and had afib with RVR; her metoprolol was changed to amiodarone and she has questions about why this was changed; they are upset because nobody explained their diagnosis or their medications. Currently asymptomatic, no chest pain or shortness of breath. Related Data Allergies Allergy/AdvReac Type Severity Reaction Status Date / Time No Known Allergies Allergy Verified 11/20/24 21:51 Review of Systems Review of Systems: All systems reviewed & are unremarkable except as noted in HPI and below PMFSH Surgical History Surgical History Hx laparoscopic cholecystectomy Previous section Family History Family History Father Acute myocardial infarction Daughter Asthma Social History Social History Smoking status: Never smoker Alcohol intake: never Living arrangements: with family Spiritual care concerns: No Exam Narrative: EXAMINATION OF ORGAN SYSTEMS/BODY AREAS: Constitutional: Vital signs per nursing GENERAL:[No acute distress, non-toxic appearing.] HEAD: Normal with no signs of head trauma. EYES: EOMI, conjunctiva normal ENT: Hearing grossly intact LUNGS: Nonlabored breathing. HEART: [Regular rate and rhythm] ABD: [Soft], [nontender to palpation] EXT: Normal range of motion SKIN: Hematoma right lower arm NEURO: [Alert and oriented x 3. No gross focal sensory or strength deficits.] PSYCH: Normal affect Course Vital Signs Vital signs: Vital Signs Temperature 97.8 F 11/20/24 21:45 Pulse Rate 61 11/20/24 21:45 Respiratory Rate 18 11/20/24 21:45 Pulse Oximetry 99 11/20/24 21:45 Oxygen Delivery Room Air 11/20/24 21:45 Temperature 97.8 F 11/20/24 21:45 Pulse Rate 62 11/20/24 22:38 Respiratory Rate 18 11/20/24 22:38 Blood Pressure 143/88 H 11/20/24 22:38 Pulse Oximetry 97 11/20/24 22:38 Oxygen Delivery Room Air 11/20/24 21:45 Medical Decision Making MDM Narrative Medical decision making narrative: Patient was at OSH and had afib with RVR; her metoprolol was changed to amiodarone and she has questions about why this was changed; they are upset because nobody explained their diagnosis or their medications. Currently asymptomatic, no chest pain or shortness of breath. I look through the discharge summary from the outside hospital, noted that she had been diagnosed with AFib with RVR, and that they have changed her medications from metoprolol to amiodarone, and that she was already on Xarelto. I did discuss with patient and family that I did not necessarily know exactly what happened during her hospital stay since I do not have records of this, but that tentatively I would say that is seems same last have changed her to a mural in for anti arrhythmic, in that at least is seem to have been effective since she is currently now in normal sinus rhythm. EKG - 12-Lead: Performed at 2321. Interpreted by me. [Sinus rhythm]. Rate 59. [Normal] axis. DE-interval [normal]. QRS duration [normal]. QTc [normal]. [No ST segment elevation or depression]. [T-wave normal]. Impression: No EKG evidence of acute ischemia or dysrhythmia. She is currently asymptomatic, I did discuss that if she has any issues with the medications she should talk to her bulb farmworker at their follow-up appointment. I did use an senior product development engineer throughout this will change, patient family quite happy about this and they have many many questions, I was able to explain the medical condition of atrial fibrillation, the treatment for this, and other things such as dietary changes, lifestyle changes, overall do feel she could benefit from a [place]-speaking provider, I did provide this as well as information for bulb farmworker if she would like to follow up with them instead but I did encourage her to follow up with her original bulb farmworker. I did also let them know they can return for any further issues. Stable for discharge at this time Vital Signs Vital Signs: Vital Signs Temperature 97.8 F 11/20/24 21:45 Pulse Rate 61 11/20/24 21:45 Respiratory Rate 18 11/20/24 21:45 Pulse Oximetry 99 11/20/24 21:45 Oxygen Delivery Room Air 11/20/24 21:45 Temperature 97.8 F 11/20/24 21:45 Pulse Rate 62 11/20/24 22:38 Respiratory Rate 18 11/20/24 22:38 Blood Pressure 143/88 H 11/20/24 22:38 Pulse Oximetry 97 11/20/24 22:38 Oxygen Delivery Room Air 11/20/24 21:45 Discharge Plan Discharge Clinical Impression: History of atrial fibrillation Patient Disposition: Home Condition: Stable Additional Instructions: Please continue the medications you are prescribed. You can follow up with a bulb farmworker here if you would like a second opinion. If you develop chest pain, shortness of breath, or anything else concerning, please come back to the ER. Patient Language: [place] Prescriptions: No Action acetaminophen 500 mg tablet 1,000 mg PO TID PRN (Reason: coral) 7 Days Qty: 42 0RF sucralfate [Carafate] 1 gram tablet 1 g PO TID Qty: 90 0RF famotidine [Pepcid] 20 mg tablet 20 mg PO BID 42 Days Qty: 84 0RF Follow-up/Referrals: Alex,SANJIV Dan [Non-Staff, Family Practice] - 2 Days Prem Santamaria MD [Physician, Cardiology] - 2 Days UNKNOWN,DOCTOR [Primary Care Provider] Stand Alone Forms: Work/School Release IP
== END 2024-11-20 23:58 | disposition home or self-care (01) ==
PROVIDERS: Emergency Provider Emergency Medicine
DX: I48.91 Unspecified atrial fibrillation (principal); R00.1 Bradycardia, unspecified; Z90.49 Acquired absence of other specified parts of digestive tract; Z79.01 Long term (current) use of anticoagulants; Z79.899 Other long term (current) drug therapy; R94.31 Abnormal electrocardiogram [ECG] [EKG]
CPT/HCPCS: 93005; 99283